=== PATIENT | female | born 1970 | race Two or more races ===

== ENCOUNTER 2017-08-14 11:09 | Inpatient (IN) | payer OTHER ==
[2017-08-14 11:24] VITALS: BMI 30.3
--- NOTE | 2017-08-14 13:10 | HP ---
COWS - Scale Resting Pulse: 1= [place] 81-100 Sweatin= Chills/Flushing Restless Observation: 1= Difficult to Sit Still Pupil Size: 1= Pupils >than Normal Bone or Joint Aches: 2= Severe Diffuse Aches Runny Nose/ Eye Tearin= Runny Nose/Eyes GI Upset > 30mins: 2= Nausea/Diarrhea Tremor Observation: 1= Tremor Malone, Not Seen Yawning Observation: 1= 1-2x During Session Anxiety or Irritability: 2=Irritable/Anxious Goose Flesh Skin: 0=Smooth Skin COWS Score: 14 CIWA Score - CIWA Score Nausea/Vomitin Muscle Tremors: 1-None Visible, but Malone Anxiety: 3 Agitation: 3 Paroxysmal Sweats: 1-Minimal Palms Moist Orientation: 0-Oriented Tacttile Disturbances: 0-None Auditory Disturbances: 0-None Visual Disturbances: 0-None Headache: 2-Mild CIWA-Ar Total Score: 12 Admission [facility] Chief Complaint: ETOH withdrawal symptoms. Allergies/Adverse Reactions: Allergies Allergy/AdvReac Type Severity Reaction Status Date / Time amoxicillin trihydrate Allergy Severe Hives Verified 09/08/12 06:50 [From Augmentin] ciprofloxacin [From Cipro] Allergy Severe Hives Verified 09/08/12 06:50 ciprofloxacin HCl Allergy Severe Hives Verified 09/08/12 06:50 [From Cipro] levofloxacin [From Levaquin] Allergy Severe Hives Verified 09/08/12 06:50 metronidazole [From Flagyl] Allergy Severe Hives Verified 09/08/12 06:50 Metronidazole HCl Allergy Severe Hives Verified 09/08/12 06:50 [From Flagyl] potassium clavulanate Allergy Severe Hives Verified 09/08/12 06:50 [From Augmentin] sulfamethoxazole Allergy Severe Hives Verified 09/08/12 06:50 [From Bactrim] trimethoprim [From Bactrim] Allergy Severe Hives Verified 09/08/12 06:50 vancomycin Allergy Severe Hives Verified 09/08/12 06:50 History of Present Illness: Patient presents for ETOH and heroin withdrawal. Drinks 7-8 beers and 1/2 pint of vodka daily. Snorts heroin and cocaine 2-3 bags a day. Uses marajuana 2-3 blunts daily. Last drink this morning. Herion use was 2 days ago, last use of cocaine and marajuana this morning. States she uses non prescription methadone, last dose 2 weeks ago. No reported seizures due to withdrawal. Denies suicidal ideation junior barnes. Has history of HIV, Bipolar disorder, Hep C ( was treated 2016), HTN and asthma. Noncompliant x 4 months with HIV medication. Exam Limitations: No Limitations - Ebola screening Have you traveled outside of the country in the last 21 days: No Have you had contact with anyone from an Ebola affected area: No Have you been sick,other than usual withdrawal symptoms: No Do you have a fever: No - Review of Systems Constitutional: Night Sweats, Changes in sleep, Unintentional Wgt. Loss EENT: reports: Tearing, Nose Congestion Respiratory: reports: Cough Cardiac: reports: No Symptoms Reported GI: reports: Diarrhea, Nausea, Poor Fluid Intake : reports: No Symptoms Reported Musculoskeletal: reports: Back Pain, Joint Pain, Muscle Pain Integumentary: reports: Flushing Neuro: reports: Headache, Tremors Endocrine: reports: Flushing, Unexplained Weight Loss Hematology: reports: No Symptoms Reported Psychiatric: reports: Anxious, Depressed Patient History - Patient Medical History Hx Anemia: No Hx Asthma: Yes Hx Chronic Obstructive Pulmonary Disease (COPD): No Hx Cancer: No Hx Cardiac Disorders: No Hx Congestive Heart Failure: No Hx Hypertension: Yes Hx Hypercholesterolemia: No Hx Pacemaker: No HX Cerebrovascular Accident: No Hx Seizures: No Hx Dementia: No Hx Diabetes: No Hx Gastrointestinal Disorders: Yes (GERD) Hx Liver Disease: No Hx Genitourinary Disorders: No Hx Sexually Transmitted Disorders: No Hx Renal Disease (ESRD): No Hx Thyroid Disease: No Hx Human Immunodeficiency Virus (HIV): Yes Hx Hepatitis C: Yes (Treated with Homar 2016) Hx Depression: Yes Hx Suicide Attempt: No (Denies suicidal ideation) Hx Bipolar Disorder: Yes Hx Schizophrenia: No - Patient Surgical History Past Surgical History: Yes Hx Neurologic Surgery: No Hx Cataract Extraction: No Hx Cardiac Surgery: No Hx Lung Surgery: No Hx Breast Surgery: No Hx Breast Biopsy: No Hx Abdominal Surgery: Yes (1995- gallbladder) Hx Appendectomy: No Hx Cholecystectomy: Yes (1996) Hx Genitourinary Surgery: No Hx Section: No Hx Orthopedic Surgery: No Hx Hysterectomy: No Other Surgical History: 2000- left axillary abscess, left pinky surgery Anesthesia Reaction: No - PPD History Previous Implant?: Yes (positive result, needs CXR) Implanted On Prior [facility] Admission?: Yes - Reproductive History Last Menstrual Period: 08/11/13 Patient : No - Smoking Cessation Smoking history: Current every day smoker Have you smoked in the past 12 months: Yes Aproximately how many cigarettes per day: 20 Cigars Per Day: 0 Hx Chewing Tobacco Use: No Initiated information on smoking cessation: Yes 'Breaking Loose' booklet given: 08/14/17 - Substances Abused Heroin Route: Inhalation Frequency: 3-6 times per week Amount used: 2 bags Age of first use: 18 Date of Last Use: 08/11/17 Alcohol Route: Oral Frequency: Daily Amount used: 6-7 beers and 1/2 pint voldka Age of first use: 9 Date of Last Use: 08/13/17 Cocaine Route: Smoking Frequency: Daily Amount used: 4 grams Age of first use: 10 Date of Last Use: 08/14/17 Marijuana/Hashish Route: Inhalation Frequency: Daily Amount used: 2-3 bags Age of first use: 9 Date of Last Use: 08/14/17 Family Disease History - Family Disease History Family Disease History: Diabetes: Brother (sleep apnea), Respiratory: Brother, Other: Father ( throat cancer) Admission Physical Exam S - Vital Signs Vital Signs: Vital Signs - 24 hr 08/14/17 08/14/17 11:23 11:42 Temperature 96.8 F L 96.6 F L Pulse Rate 91 H 91 H Respiratory 18 18 Rate Blood Pressure 161/99 161/99 - Physical General Appearance: Yes: No Apparent Distress, Tremorous, Irritable, Sweating, Anxious HEENTM: Yes: Hearing grossly Normal, Normocephalic, Normal Voice, VIDAL, Pharynx Normal Respiratory: Yes: Within Normal Limits, Chest Non-Tender, Lungs Clear, Normal Breath Sounds Neck: Yes: Within Normal Limits, No masses,lesions,Nodules, Supple Breast: Yes: Breast Exam Deferred Cardiology: Yes: Within Normal Limits, Regular Rhythm, Regular Rate, S1, S2 Abdominal: Yes: Within Normal Limits, Normal Bowel Sounds, Non Tender, Soft Genitourinary: Yes: Within Normal Limits Back: Yes: Muscle Spasm Musculoskeletal: Yes: Back pain, Joint Stiffness, Muscle Pain Extremities: Yes: Tremors Neurological: Yes: Within Normal Limits, Fully Oriented, Alert, Depressed Affect Integumentary: Yes: Warm, Moist Lymphatic: Yes: Within Normal Limits - Diagnostic (1) Alcohol dependence with uncomplicated withdrawal Current Visit: Yes Status: Acute (2) HTN (hypertension) Current Visit: Yes Status: Chronic Qualifiers: Hypertension type: unspecified Qualified Code(s): I10 - Essential (primary ) hypertension (3) HIV (human immunodeficiency virus infection) Current Visit: Yes Status: Chronic (4) GERD (gastroesophageal reflux disease) Current Visit: Yes Status: Chronic Qualifiers: Esophagitis presence: esophagitis presence not specified Qualified Code(s) : K21.9 - Gastro-esophageal reflux disease without esophagitis (5) Asthma Current Visit: Yes Status: Chronic (6) Cannabis dependence Current Visit: Yes Status: Active (7) Cocaine dependence Current Visit: Yes Status: Active (8) Opioid dependence Current Visit: Yes Status: Active Cleared for Admission [facility] - Detox or Rehab S Level of Care: Medically Managed Detox Regimen/Protocol: Methadone/Librium S Breath Alcohol Content Breath Alcohol Content: 0 Urine Pregancy Test - Result Urine Test Results: Negative- NO Line Present Urine Drug Screen - Results Drug Screen Negative: No Urine Drug Screen Results: THC-Marijuana, SILVANA-Cocaine, MTD-Methadone Inpatient Rehab Admission - Initial Determination Are CD services needed?: Yes Free of communicable disease: Yes Not in need of hospitalization: Yes - Rehab Admission Criteria Previous failed treatment: Yes Poor recovery environment: Yes Comorbidities: Yes Lacks judgement: Yes
[2017-08-14] MEDS ORDERED: MENTHOL/PHENOL 1 EACH UD MM PRN (13:30)
[2017-08-14] MEDS ORDERED: MAG HYDROX/AL HYDROX/SIMETH 30 ML UNIT-DOSE CUP PO PRN (13:30)
[2017-08-14] MEDS ORDERED: MAGNESIUM CITRATE 300 ML BOTTLE PO PRN (13:30)
[2017-08-14] MEDS ORDERED: NICOTINE POLACRILEX 2 MG GUM BC PRN (13:30)
[2017-08-14] MEDS ORDERED: guaiFENesin/D-METHORPHAN HB 10 ML UNIT-DOSE CUPS PO PRN (13:30)
[2017-08-14] MEDS ORDERED: IBUPROFEN 400 MG TABLET (FP) PO PRN (13:30)
[2017-08-14] MEDS ORDERED: ACETAMINOPHEN 325 MG TABLET (FP) PO PRN (13:30)
[2017-08-14] MEDS ORDERED: chlordiazePOXIDE HCL 25 MG CAPSULE PO PRN (13:34)
[2017-08-14] MEDS ORDERED: METHADONE HCL 10 MG TABLET (FOR DETOX USE ONLY) PO ONE ×2 (14:30→23:00)
[2017-08-14] MEDS ORDERED: chlordiazePOXIDE HCL 25 MG CAPSULE PO ONE (14:30)
[2017-08-14] MEDS: chlordiazePOXIDE HCL 25 MG CAPSULE PO SCH ×2 (16:48→22:12)
[2017-08-14] MEDS: HYDROCHLOROTHIAZIDE 25 MG TABLET (FP) PO SCH (16:48)
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
[2017-08-14 17:47] LABS: URINE APPEARANCE CLOUDY; URINE BILIRUBIN NEGATIVE (<2.0 mg/dL); URINE BLOOD NEGATIVE (NEGATIVE); URINE COLOR AMBER; URINE GLUCOSE (UA) NEGATIVE (NEGATIVE); URINE KETONE NEGATIVE (NEGATIVE); URINE NITRITE NEGATIVE (NEGATIVE)
[2017-08-14 17:53] LABS: URINE LEUK ESTERASE 1+ (NEGATIVE); URINE PROTEIN 1+ (NEGATIVE)
[2017-08-14 18:03] LABS: EPI CELLS MODERATE /HPF (FEW); URINE BACTERIA RARE /hpf (NONE SEEN); URINE MUCUS FEW
[2017-08-14] MEDS ORDERED: MELATONIN 5 MG TABLETS PO PRN (22:00)
[2017-08-14] MEDS: LURASIDONE HCL 20 MG TABLET PO SCH (22:12)
[2017-08-14] MEDS: THIAMINE HCL 100 MG TABLET (FP) PO SCH (22:12)
[2017-08-14] MEDS: ZOLPIDEM TARTRATE 5 MG TABLET PO PRN (22:13)
[2017-08-15] MEDS: chlordiazePOXIDE HCL 25 MG CAPSULE PO SCH ×4 (05:06→22:12)
--- NOTE | 2017-08-15 09:26 | PN ---
[facility] CIWA - CIWA Score Nausea/Vomitin Muscle Tremors: 3 Anxiety: 3 Agitation: 3 Paroxysmal Sweats: 1-Minimal Palms Moist Orientation: 0-Oriented Tacttile Disturbances: 1-Very Mild Itch/Numbness Auditory Disturbances: 1-Very Mild Visual Disturbances: 0-None Headache: 2-Mild CIWA-Ar Total Score: 17 [facility] COWS - Scale Resting Pulse: 1= [place] 81-100 Sweatin= Chills/Flushing Restless Observation: 3= Extraneous Movement Pupil Size: 1= Pupils >than Normal Bone or Joint Aches: 2= Severe Diffuse Aches Runny Nose/ Eye Tearin= Runny Nose/Eyes GI Upset > 30mins: 3= Vomiting/Diarrhea Tremor Observation of Outstretched Hands: 2= Slight Tremor Visible Yawning Observation: 1= 1-2x During Session Anxiety or Irritability: 2=Irritable/Anxious Goose Flesh Skin: 0=Smooth Skin COWS Score: 18 [facility] Progress Note (SOAP) Subjective: ALERT,IRRITABLE,ANXIOUS,INTERRUPTED SLEEP,TREMOR,PAIN IN THE BODY AND BACK Objective: 08/15/17 09:24 Vital Signs Temperature 98 F 08/15/17 06:10 Pulse Rate 83 08/15/17 06:10 Respiratory Rate 18 08/15/17 06:10 Blood Pressure 134/82 08/15/17 06:10 O2 Sat by Pulse Oximetry (%) EKG NSR 75/MIN PROLONG QT 450/502 NO CHEST PAIN,NO SOB,NO DIZZINESS Laboratory Last Values Urine Color Vanesa 08/14/17 17:00 Urine Appearance Cloudy 08/14/17 17:00 Urine pH 6.0 (5.0-8.0) 08/14/17 17:00 Ur Specific [place] 1.023 (1.001-1.035) 08/14/17 17:00 Urine Protein 1+ (NEGATIVE) H 08/14/17 17:00 Urine Glucose (UA) Negative (NEGATIVE) 08/14/17 17:00 Urine Ketones Negative (NEGATIVE) 08/14/17 17:00 Urine Blood Negative (NEGATIVE) 08/14/17 17:00 Urine Nitrite Negative (NEGATIVE) 08/14/17 17:00 Urine Bilirubin Negative (<2.0 mg/dL) 08/14/17 17:00 Urine Urobilinogen 2.0 mg/dL (0.2-1.0) H 08/14/17 17:00 Ur Leukocyte Esterase 1+ (NEGATIVE) H 08/14/17 17:00 Urine WBC (Auto) 20 /hpf (3-5) 08/14/17 17:00 Urine RBC (Auto) 5 /hpf (0-3) 08/14/17 17:00 Ur Epithelial Cells Moderate /HPF (FEW) 08/14/17 17:00 Urine Bacteria Rare /hpf (NONE SEEN) 08/14/17 17:00 Urine Mucus Few 08/14/17 17:00 LABS PENDING Assessment: 08/15/17 09:26 WITHDRAWAL SYMPTOM Plan: CONTINUE DETOX,REPEAT UA,ENCOURAGE FLUID
[2017-08-15] MEDS ORDERED: METHADONE HCL 10 MG TABLET (FOR DETOX USE ONLY) PO SCH (10:00)
[2017-08-15] MEDS ORDERED: HYDROCHLOROTHIAZIDE 25 MG TABLET (FP) PO SCH (10:00)
[2017-08-15 10:19] LABS: HEMATOCRIT 36.8 % (32.4-45.2); HEMOGLOBIN 11.8 GM/dL (10.7-15.3); MCH 30.3 pg (25.7-33.7); MCHC 32.1 g/dl (32.0-36.0); MEAN CELL VOLUME 94.3 fl (80-96); MEAN PLT VOLUME 10.7 fl (7.5-11.1); PLATELET COUNT 254 K/MM3 (134-434); RDW 16.3 % (11.6-15.6); WHITE BLOOD COUNT 7.9 K/mm3 (4.0-10.0)
[2017-08-15] MEDS: PRENATAL VITAMINS W/ FOLIC ACID TABLET (FP) PO SCH (10:45)
[2017-08-15] MEDS: NICOTINE 21 MG/24 HOURS TOPICAL PATCH TD SCH (10:46)
[2017-08-15] MEDS: HYDROCHLOROTHIAZIDE 25 MG TABLET (FP) PO SCH (10:46)
[2017-08-15] MEDS: P-EPHED 60MG/TRIPROLIDI 2.5MG TABLET PO PRN (10:46)
[2017-08-15 10:57] LABS: CHLORIDE 107 mmol/L (98-107); POTASSIUM 3.8 mmol/L (3.5-5.1); SODIUM 141 mmol/L (136-145)
[2017-08-15 11:02] LABS: ALBUMIN 3.2 g/dl (3.4-5.0); ALK PHOS 109 U/L (45-117); ANION GAP 8 (8-16); BILIRUBIN,TOTAL 0.3 mg/dL (0.2-1.0); BLOOD UREA NITROGEN 10 mg/dL (7-18); CALCIUM 8.6 mg/dL (8.5-10.1); CO2 26 mmol/L (21-32); CREATININE 0.7 mg/dL (0.55-1.02); GLUCOSE,RANDOM 89 mg/dL (74-106); SGOT/AST 14 U/L (15-37); SGPT/ALT 13 U/L (12-78); TOT PROT 7.8 g/dl (6.4-8.2)
--- NOTE | 2017-08-15 11:09 | EKG ---
Test Reason : Blood Pressure : / mmHG Vent. Rate : 088 BPM Atrial Rate : 088 BPM P-R Int : 126 ms QRS Dur : 076 ms QT Int : 410 ms P-R-T Axes : 065 057 053 degrees QTc Int : 496 ms NORMAL SINUS RHYTHM POSSIBLE LEFT ATRIAL ENLARGEMENT LEFT VENTRICULAR HYPERTROPHY PROLONGED QT ABNORMAL ECG NO PREVIOUS ECGS AVAILABLE Confirmed by PATRICK PEARSON MD ([id number]) on 08/15/2017 11:08:53 AM Referred By: Confirmed By:PATRICK PEARSON MD
[2017-08-15 11:38] LABS: SICKLE CELL SCREEN NEGATIVE (NEGATIVE)
[2017-08-15] MEDS: DOCUSATE SODIUM 100 MG CAPSULE (FP) PO SCH ×2 (15:24→22:12)
[2017-08-15] MEDS: LURASIDONE HCL 20 MG TABLET PO SCH (22:12)
[2017-08-15] MEDS: THIAMINE HCL 100 MG TABLET (FP) PO SCH (22:12)
[2017-08-15] MEDS: ZOLPIDEM TARTRATE 5 MG TABLET PO PRN (22:15)
[2017-08-16] MEDS: chlordiazePOXIDE HCL 25 MG CAPSULE PO SCH ×2 (06:02→10:34)
[2017-08-16] MEDS: DOCUSATE SODIUM 100 MG CAPSULE (FP) PO SCH ×3 (06:03→22:16)
[2017-08-16] MEDS: P-EPHED 60MG/TRIPROLIDI 2.5MG TABLET PO PRN (06:19)
--- NOTE | 2017-08-16 10:06 | PN ---
S CIWA - CIWA Score Nausea/Vomitin Muscle Tremors: 3 Anxiety: 3 Agitation: 2 Paroxysmal Sweats: 1-Minimal Palms Moist Orientation: 0-Oriented Tacttile Disturbances: 1-Very Mild Itch/Numbness Auditory Disturbances: 1-Very Mild Visual Disturbances: 0-None Headache: 2-Mild CIWA-Ar Total Score: 16 [facility] COWS - Scale Resting Pulse: 1= [place] 81-100 Sweatin= Chills/Flushing Restless Observation: 3= Extraneous Movement Pupil Size: 1= Pupils >than Normal Bone or Joint Aches: 2= Severe Diffuse Aches Runny Nose/ Eye Tearin= Runny Nose/Eyes GI Upset > 30mins: 2= Nausea/Diarrhea Tremor Observation of Outstretched Hands: 2= Slight Tremor Visible Yawning Observation: 1= 1-2x During Session Anxiety or Irritability: 2=Irritable/Anxious Goose Flesh Skin: 0=Smooth Skin COWS Score: 17 S Progress Note (SOAP) Subjective: ALERT,IRRITABLE,ANXIOUS,INTERRUPTED SLEEP,TREMOR,PAIN IN THE BODY AND BACK Objective: 08/16/17 10:04 Vital Signs Temperature 97.9 F 08/16/17 06:30 Pulse Rate 82 08/16/17 06:30 Respiratory Rate 18 08/16/17 06:30 Blood Pressure 102/50 08/16/17 06:30 O2 Sat by Pulse Oximetry (%) 08/16/17 10:05 Laboratory Last Values WBC 7.9 K/mm3 (4.0-10.0) 08/15/17 06:00 RBC 3.90 M/mm3 (3.60-5.2) 08/15/17 06:00 Hgb 11.8 GM/dL (10.7-15.3) 08/15/17 06:00 Hct 36.8 % (32.4-45.2) 08/15/17 06:00 MCV 94.3 fl (80-96) 08/15/17 06:00 MCH 30.3 pg (25.7-33.7) 08/15/17 06:00 MCHC 32.1 g/dl (32.0-36.0) 08/15/17 06:00 RDW 16.3 % (11.6-15.6) H D 08/15/17 06:00 Plt Count 254 K/MM3 (134-434) 08/15/17 06:00 MPV 10.7 fl (7.5-11.1) D 08/15/17 06:00 Sickle Cell Screen Negative (NEGATIVE) 08/15/17 06:00 Sodium 141 mmol/L (136-145) 08/15/17 06:00 Potassium 3.8 mmol/L (3.5-5.1) 08/15/17 06:00 Chloride 107 mmol/L (98-107) 08/15/17 06:00 Carbon Dioxide 26 mmol/L (21-32) 08/15/17 06:00 Anion Gap 8 (8-16) 08/15/17 06:00 BUN 10 mg/dL (7-18) 08/15/17 06:00 Creatinine 0.7 mg/dL (0.55-1.02) 08/15/17 06:00 Creat Clearance w eGFR > 60 (>60) 08/15/17 06:00 Random Glucose 89 mg/dL (74-106) 08/15/17 06:00 Calcium 8.6 mg/dL (8.5-10.1) 08/15/17 06:00 Total Bilirubin 0.3 mg/dL (0.2-1.0) 08/15/17 06:00 AST 14 U/L (15-37) L 08/15/17 06:00 ALT 13 U/L (12-78) 08/15/17 06:00 Alkaline Phosphatase 109 U/L (45-117) 08/15/17 06:00 Total Protein 7.8 g/dl (6.4-8.2) 08/15/17 06:00 Albumin 3.2 g/dl (3.4-5.0) L 08/15/17 06:00 Urine Color Vanesa 08/14/17 17:00 Urine Appearance Cloudy 08/14/17 17:00 Urine pH 6.0 (5.0-8.0) 08/14/17 17:00 Ur Specific [place] 1.023 (1.001-1.035) 08/14/17 17:00 Urine Protein 1+ (NEGATIVE) H 08/14/17 17:00 Urine Glucose (UA) Negative (NEGATIVE) 08/14/17 17:00 Urine Ketones Negative (NEGATIVE) 08/14/17 17:00 Urine Blood Negative (NEGATIVE) 08/14/17 17:00 Urine Nitrite Negative (NEGATIVE) 08/14/17 17:00 Urine Bilirubin Negative (<2.0 mg/dL) 08/14/17 17:00 Urine Urobilinogen 2.0 mg/dL (0.2-1.0) H 08/14/17 17:00 Ur Leukocyte Esterase 1+ (NEGATIVE) H 08/14/17 17:00 Urine WBC (Auto) 20 /hpf (3-5) 08/14/17 17:00 Urine RBC (Auto) 5 /hpf (0-3) 08/14/17 17:00 Ur Epithelial Cells Moderate /HPF (FEW) 08/14/17 17:00 Urine Bacteria Rare /hpf (NONE SEEN) 08/14/17 17:00 Urine Mucus Few 08/14/17 17:00 RPR Titer Nonreactive (NONREACTIVE) 08/15/17 06:00 Assessment: 08/16/17 10:05 WITHDRAWAL SYMPTOM Plan: CONTINUE DETOX,REPEAT UA
[2017-08-16] MEDS: PRENATAL VITAMINS W/ FOLIC ACID TABLET (FP) PO SCH (10:33)
[2017-08-16] MEDS: HYDROCHLOROTHIAZIDE 25 MG TABLET (FP) PO SCH (10:33)
[2017-08-16] MEDS: METHADONE HCL 5 MG TABLET (FOR DETOX USE ONLY) PO SCH (10:34)
[2017-08-16] MEDS: NICOTINE 21 MG/24 HOURS TOPICAL PATCH TD SCH (10:34)
[2017-08-16 14:13] LABS: URINE APPEARANCE SLCLOUDY; URINE BILIRUBIN NEGATIVE (<2.0 mg/dL); URINE BLOOD NEGATIVE (NEGATIVE); URINE COLOR LTYELLOW; URINE GLUCOSE (UA) NEGATIVE (NEGATIVE); URINE KETONE NEGATIVE (NEGATIVE); URINE LEUK ESTERASE TRACE (NEGATIVE); URINE NITRITE NEGATIVE (NEGATIVE); URINE PROTEIN NEGATIVE (NEGATIVE); URINE UROBILINOGEN NEGATIVE mg/dL (0.2-1.0)
[2017-08-16 14:30] LABS: CALCIUM OXALATE CRYSTALS RARE /hpf (NONE SEEN); EPI CELLS RARE /HPF (FEW)
[2017-08-16] MEDS: MAGNESIUM HYDROX 2400MG/30ML ORAL SUSPENSION 30 ML CUP PO PRN (17:19)
[2017-08-16] MEDS: chlordiazePOXIDE 5 MG CAPSULE PO SCH ×2 (17:49→22:16)
[2017-08-16] MEDS: THIAMINE HCL 100 MG TABLET (FP) PO SCH (22:16)
[2017-08-16] MEDS: LURASIDONE HCL 20 MG TABLET PO SCH (22:16)
[2017-08-16] MEDS: ZOLPIDEM TARTRATE 5 MG TABLET PO PRN (22:21)
[2017-08-17] MEDS: DOCUSATE SODIUM 100 MG CAPSULE (FP) PO SCH ×3 (05:16→22:16)
[2017-08-17] MEDS: chlordiazePOXIDE 5 MG CAPSULE PO SCH ×2 (05:16→10:10)
[2017-08-17] MEDS: MAGNESIUM HYDROX 2400MG/30ML ORAL SUSPENSION 30 ML CUP PO PRN (05:18)
[2017-08-17] MEDS: NICOTINE 21 MG/24 HOURS TOPICAL PATCH TD SCH (10:10)
[2017-08-17] MEDS: HYDROCHLOROTHIAZIDE 25 MG TABLET (FP) PO SCH (10:10)
[2017-08-17] MEDS: PRENATAL VITAMINS W/ FOLIC ACID TABLET (FP) PO SCH (10:10)
[2017-08-17] MEDS: METHADONE HCL 5 MG TABLET (FOR DETOX USE ONLY) PO SCH (10:11)
--- NOTE | 2017-08-17 10:39 | PN ---
S Progress Note (SOAP) Subjective: Occasional nausea without vomiting, one episode of diarrhea last night Objective: 08/17/17 10:37 Vital Signs 08/17/17 08/17/17 03:30 06:00 Temperature 96.3 F L Pulse Rate 84 Respiratory 18 18 Rate Blood Pressure 117/77 Laboratory Last Values WBC 7.9 K/mm3 (4.0-10.0) 08/15/17 06:00 RBC 3.90 M/mm3 (3.60-5.2) 08/15/17 06:00 Hgb 11.8 GM/dL (10.7-15.3) 08/15/17 06:00 Hct 36.8 % (32.4-45.2) 08/15/17 06:00 MCV 94.3 fl (80-96) 08/15/17 06:00 MCH 30.3 pg (25.7-33.7) 08/15/17 06:00 MCHC 32.1 g/dl (32.0-36.0) 08/15/17 06:00 RDW 16.3 % (11.6-15.6) H D 08/15/17 06:00 Plt Count 254 K/MM3 (134-434) 08/15/17 06:00 MPV 10.7 fl (7.5-11.1) D 08/15/17 06:00 Sickle Cell Screen Negative (NEGATIVE) 08/15/17 06:00 Sodium 141 mmol/L (136-145) 08/15/17 06:00 Potassium 3.8 mmol/L (3.5-5.1) 08/15/17 06:00 Chloride 107 mmol/L (98-107) 08/15/17 06:00 Carbon Dioxide 26 mmol/L (21-32) 08/15/17 06:00 Anion Gap 8 (8-16) 08/15/17 06:00 BUN 10 mg/dL (7-18) 08/15/17 06:00 Creatinine 0.7 mg/dL (0.55-1.02) 08/15/17 06:00 Creat Clearance w eGFR > 60 (>60) 08/15/17 06:00 Random Glucose 89 mg/dL (74-106) 08/15/17 06:00 Calcium 8.6 mg/dL (8.5-10.1) 04/05/18 06:00 Total Bilirubin 0.3 mg/dL (0.2-1.0) 08/15/17 06:00 AST 14 U/L (15-37) L 08/15/17 06:00 ALT 13 U/L (12-78) 08/15/17 06:00 Alkaline Phosphatase 109 U/L (45-117) 08/15/17 06:00 Total Protein 7.8 g/dl (6.4-8.2) 08/15/17 06:00 Albumin 3.2 g/dl (3.4-5.0) L 08/15/17 06:00 Urine Color Ltyellow 08/16/17 10:00 Urine Appearance Slcloudy 08/16/17 10:00 Urine pH 7.0 (5.0-8.0) 08/16/17 10:00 Ur Specific [place] 1.011 (1.001-1.035) 08/16/17 10:00 Urine Protein Negative (NEGATIVE) 08/16/17 10:00 Urine Glucose (UA) Negative (NEGATIVE) 08/16/17 10:00 Urine Ketones Negative (NEGATIVE) 08/16/17 10:00 Urine Blood Negative (NEGATIVE) 08/16/17 10:00 Urine Nitrite Negative (NEGATIVE) 08/16/17 10:00 Urine Bilirubin Negative (<2.0 mg/dL) 08/16/17 10:00 Urine Urobilinogen Negative mg/dL (0.2-1.0) 08/16/17 10:00 Ur Leukocyte Esterase Trace (NEGATIVE) 08/16/17 10:00 Urine WBC (Auto) 4 /hpf (3-5) 08/16/17 10:00 Urine RBC (Auto) <1 /hpf (0-3) 08/16/17 10:00 Ur Epithelial Cells Rare /HPF (FEW) 08/16/17 10:00 Calcium Oxalate Crystal Rare /hpf (NONE SEEN) 08/16/17 10:00 Urine Bacteria Rare /hpf (NONE SEEN) 08/14/17 17:00 Urine Mucus Few 08/14/17 17:00 RPR Titer Nonreactive (NONREACTIVE) 08/15/17 06:00 Labs noted Assessment: 08/17/17 10:38 Withdrawal symptoms Plan: Continue detox
--- NOTE | 2017-08-17 11:38 | EKG ---
Test Reason : Blood Pressure : / mmHG Vent. Rate : 076 BPM Atrial Rate : 076 BPM P-R Int : 128 ms QRS Dur : 080 ms QT Int : 458 ms P-R-T Axes : 062 053 070 degrees QTc Int : 515 ms NORMAL SINUS RHYTHM POSSIBLE LEFT ATRIAL ENLARGEMENT LEFT VENTRICULAR HYPERTROPHY NONSPECIFIC T WAVE ABNORMALITY PROLONGED QT ABNORMAL ECG WHEN COMPARED WITH ECG OF 14-AUG-2017 14:53, NONSPECIFIC T WAVE ABNORMALITY NOW EVIDENT IN ANTEROLATERAL LEADS Confirmed by GEOFFREY REVELES MD ([id number]) on 08/17/2017 11:38:19 AM Referred By: Confirmed By:GEOFFREY REVELES MD
[2017-08-17] MEDS: hydrOXYzine PAMOATE 50 MG CAPSULE (FP) PO PRN (14:35)
[2017-08-17] MEDS: chlordiazePOXIDE HCL 10 MG CAPSULE PO SCH ×2 (17:49→22:17)
[2017-08-17] MEDS: THIAMINE HCL 100 MG TABLET (FP) PO SCH (22:16)
[2017-08-17] MEDS: LURASIDONE HCL 20 MG TABLET PO SCH (22:16)
[2017-08-17] MEDS: ZOLPIDEM TARTRATE 5 MG TABLET PO PRN (22:18)
[2017-08-17] MEDS: P-EPHED 60MG/TRIPROLIDI 2.5MG TABLET PO PRN (23:11)
[2017-08-18] MEDS: chlordiazePOXIDE HCL 10 MG CAPSULE PO SCH ×2 (05:49→10:19)
[2017-08-18] MEDS: DOCUSATE SODIUM 100 MG CAPSULE (FP) PO SCH ×4 (05:49→22:13)
[2017-08-18] MEDS ORDERED: METHADONE HCL 10 MG TABLET (FOR DETOX USE ONLY) PO SCH (10:00)
[2017-08-18] MEDS: HYDROCHLOROTHIAZIDE 25 MG TABLET (FP) PO SCH (10:18)
[2017-08-18] MEDS: PRENATAL VITAMINS W/ FOLIC ACID TABLET (FP) PO SCH (10:18)
[2017-08-18] MEDS: NICOTINE 21 MG/24 HOURS TOPICAL PATCH TD SCH (10:19)
--- NOTE | 2017-08-18 13:55 | PN ---
[facility] Progress Note (SOAP) Subjective: feeling better no tremor no joint aches less sweat alert oriented x 3 Objective: 08/18/17 13:54 Vital Signs Temperature 98.1 F 08/18/17 09:54 Pulse Rate 88 08/18/17 09:54 Respiratory Rate 18 04 09:54 Blood Pressure 106/75 08/18/17 09:54 O2 Sat by Pulse Oximetry (%) Laboratory Last Values WBC 7.9 K/mm3 (4.0-10.0) 08/15/17 06:00 RBC 3.90 M/mm3 (3.60-5.2) 08/15/17 06:00 Hgb 11.8 GM/dL (10.7-15.3) 08/15/17 06:00 Hct 36.8 % (32.4-45.2) 08/15/17 06:00 MCV 94.3 fl (80-96) 08/15/17 06:00 MCH 30.3 pg (25.7-33.7) 08/15/17 06:00 MCHC 32.1 g/dl (32.0-36.0) 08/15/17 06:00 RDW 16.3 % (11.6-15.6) H D 08/15/17 06:00 Plt Count 254 K/MM3 (134-434) 08/15/17 06:00 MPV 10.7 fl (7.5-11.1) D 08/15/17 06:00 Sickle Cell Screen Negative (NEGATIVE) 08/15/17 06:00 Sodium 141 mmol/L (136-145) 08/15/17 06:00 Potassium 3.8 mmol/L (3.5-5.1) 08/15/17 06:00 Chloride 107 mmol/L (98-107) 08/15/17 06:00 Carbon Dioxide 26 mmol/L (21-32) 08/15/17 06:00 Anion Gap 8 (8-16) 08/15/17 06:00 BUN 10 mg/dL (7-18) 08/15/17 06:00 Creatinine 0.7 mg/dL (0.55-1.02) 08/15/17 06:00 Creat Clearance w eGFR > 60 (>60) 08/15/17 06:00 Random Glucose 89 mg/dL (74-106) 08/15/17 06:00 Calcium 8.6 mg/dL (8.5-10.1) 08/15/17 06:00 Total Bilirubin 0.3 mg/dL (0.2-1.0) 08/15/17 06:00 AST 14 U/L (15-37) L 08/15/17 06:00 ALT 13 U/L (12-78) 08/15/17 06:00 Alkaline Phosphatase 109 U/L (45-117) 08/15/17 06:00 Total Protein 7.8 g/dl (6.4-8.2) 08/15/17 06:00 Albumin 3.2 g/dl (3.4-5.0) L 08/15/17 06:00 Urine Color Ltyellow 08/16/17 10:00 Urine Appearance Slcloudy 08/16/17 10:00 Urine pH 7.0 (5.0-8.0) 08/16/17 10:00 Ur Specific [place] 1.011 (1.001-1.035) 08/16/17 10:00 Urine Protein Negative (NEGATIVE) 08/16/17 10:00 Urine Glucose (UA) Negative (NEGATIVE) 08/16/17 10:00 Urine Ketones Negative (NEGATIVE) 08/16/17 10:00 Urine Blood Negative (NEGATIVE) 08/16/17 10:00 Urine Nitrite Negative (NEGATIVE) 08/16/17 10:00 Urine Bilirubin Negative (<2.0 mg/dL) 08/16/17 10:00 Urine Urobilinogen Negative mg/dL (0.2-1.0) 08/16/17 10:00 Ur Leukocyte Esterase Trace (NEGATIVE) 08/16/17 10:00 Urine WBC (Auto) 4 /hpf (3-5) 08/16/17 10:00 Urine RBC (Auto) <1 /hpf (0-3) 08/16/17 10:00 Ur Epithelial Cells Rare /HPF (FEW) 08/16/17 10:00 Calcium Oxalate Crystal Rare /hpf (NONE SEEN) 08/16/17 10:00 Urine Bacteria Rare /hpf (NONE SEEN) 08/14/17 17:00 Urine Mucus Few 08/14/17 17:00 RPR Titer Nonreactive (NONREACTIVE) 08/15/17 06:00 lab noted Assessment: 08/18/17 13:54 mild withdrawal sx Plan: medically supervised detox
[2017-08-18 15:09] LABS: URINE APPEARANCE CLOUDY; URINE BILIRUBIN NEGATIVE (<2.0 mg/dL); URINE BLOOD NEGATIVE (NEGATIVE); URINE COLOR YELLOW; URINE GLUCOSE (UA) NEGATIVE (NEGATIVE); URINE KETONE NEGATIVE (NEGATIVE); URINE NITRITE NEGATIVE (NEGATIVE); URINE PROTEIN NEGATIVE (NEGATIVE); URINE UROBILINOGEN NEGATIVE mg/dL (0.2-1.0)
[2017-08-18 15:12] LABS: URINE LEUK ESTERASE 2+ (NEGATIVE)
[2017-08-18 15:14] LABS: EPI CELLS MODERATE /HPF (FEW); URINE BACTERIA RARE /hpf (NONE SEEN); URINE MUCUS RARE
[2017-08-18] MEDS: hydrOXYzine PAMOATE 50 MG CAPSULE (FP) PO PRN (15:24)
[2017-08-18] MEDS: LOPERAMIDE HCL 2 MG CAPSULE PO PRN (19:19)
[2017-08-18] MEDS: ZOLPIDEM TARTRATE 5 MG TABLET PO PRN (22:11)
[2017-08-18] MEDS: LURASIDONE HCL 20 MG TABLET PO SCH (22:11)
[2017-08-18] MEDS: THIAMINE HCL 100 MG TABLET (FP) PO SCH (22:11)
[2017-08-19] MEDS: hydrOXYzine PAMOATE 50 MG CAPSULE (FP) PO PRN (02:38)
[2017-08-19] MEDS: LOPERAMIDE HCL 2 MG CAPSULE PO PRN (02:38)
[2017-08-19] MEDS ORDERED: METHADONE HCL 5 MG TABLET (FOR DETOX USE ONLY) PO SCH (06:00)
[2017-08-19] MEDS: DOCUSATE SODIUM 100 MG CAPSULE (FP) PO SCH (06:09)
--- NOTE | 2017-08-19 08:11 | PN ---
S Progress Note (SOAP) Subjective: ALERT,NO COMPLAINT Objective: 08/19/17 08:09 Vital Signs Temperature 97.3 F L 08/19/17 06:10 Pulse Rate 89 08/19/17 06:10 Respiratory Rate 18 08/19/17 06:10 Blood Pressure 128/85 08/19/17 06:10 O2 Sat by Pulse Oximetry (%) Assessment: 08/19/17 08:09 DETOX COMPLETED,NO COMPLAINT Plan: DISCHARGE TODAY,FOLLOW UP WITH REVELATION ARRANGEMENT
--- NOTE | 2017-08-19 08:14 | DS ---
[facility] Summary Admission Date: 08/14/17 Discharge Date: 08/19/17 - History Present History: Alcohol Dependence, Cannabis Dependence, Cocaine Dependence, Opioid Dependence Additional Comments: FOLLOW UP WITH REVELATION APPOINTMENT Pertinent Past History: ASTHMA HYPERTENSION GERD HIV BIPOLAR DISORDER - Physical Exam Results Vital Signs: Vital Signs Temperature 97.3 F L 08/19/17 06:10 Pulse Rate 89 08/19/17 06:10 Respiratory Rate 18 08/19/17 06:10 Blood Pressure 128/85 08/19/17 06:10 O2 Sat by Pulse Oximetry (%) Pertinent Admission Physical Exam Findings: WITHDRAWAL SIGNS AND SYMPTOM Vital Signs Temperature 97.3 F L 08/19/17 06:10 Pulse Rate 89 08/19/17 06:10 Respiratory Rate 18 08/19/17 06:10 Blood Pressure 128/85 08/19/17 06:10 O2 Sat by Pulse Oximetry (%) Laboratory Last Values WBC 7.9 K/mm3 (4.0-10.0) 08/15/17 06:00 RBC 3.90 M/mm3 (3.60-5.2) 08/15/17 06:00 Hgb 11.8 GM/dL (10.7-15.3) 08/15/17 06:00 Hct 36.8 % (32.4-45.2) 08/15/17 06:00 MCV 94.3 fl (80-96) 08/15/17 06:00 MCH 30.3 pg (25.7-33.7) 08/15/17 06:00 MCHC 32.1 g/dl (32.0-36.0) 08/15/17 06:00 RDW 16.3 % (11.6-15.6) H D 08/15/17 06:00 Plt Count 254 K/MM3 (134-434) 08/15/17 06:00 MPV 10.7 fl (7.5-11.1) D 08/15/17 06:00 Sickle Cell Screen Negative (NEGATIVE) 08/15/17 06:00 Sodium 141 mmol/L (136-145) 08/15/17 06:00 Potassium 3.8 mmol/L (3.5-5.1) 08/15/17 06:00 Chloride 107 mmol/L (98-107) 08/15/17 06:00 Carbon Dioxide 26 mmol/L (21-32) 08/15/17 06:00 Anion Gap 8 (8-16) 08/15/17 06:00 BUN 10 mg/dL (7-18) 08/15/17 06:00 Creatinine 0.7 mg/dL (0.55-1.02) 08/15/17 06:00 Creat Clearance w eGFR > 60 (>60) 08/15/17 06:00 Random Glucose 89 mg/dL (74-106) 08/15/17 06:00 Calcium 8.6 mg/dL (8.5-10.1) 08/15/17 06:00 Total Bilirubin 0.3 mg/dL (0.2-1.0) 08/15/17 06:00 AST 14 U/L (15-37) L 08/15/17 06:00 ALT 13 U/L (12-78) 08/15/17 06:00 Alkaline Phosphatase 109 U/L (45-117) 08/15/17 06:00 Total Protein 7.8 g/dl (6.4-8.2) 08/15/17 06:00 Albumin 3.2 g/dl (3.4-5.0) L 08/15/17 06:00 Urine Color Yellow 08/18/17 12:51 Urine Appearance Cloudy 08/18/17 12:51 Urine pH 6.0 (5.0-8.0) 08/18/17 12:51 Ur Specific [place] 1.018 (1.001-1.035) 08/18/17 12:51 Urine Protein Negative (NEGATIVE) 08/18/17 12:51 Urine Glucose (UA) Negative (NEGATIVE) 08/18/17 12:51 Urine Ketones Negative (NEGATIVE) 08/18/17 12:51 Urine Blood Negative (NEGATIVE) 08/18/17 12:51 Urine Nitrite Negative (NEGATIVE) 08/18/17 12:51 Urine Bilirubin Negative (<2.0 mg/dL) 08/18/17 12:51 Urine Urobilinogen Negative mg/dL (0.2-1.0) 08/18/17 12:51 Ur Leukocyte Esterase 2+ (NEGATIVE) H 08/18/17 12:51 Urine WBC (Auto) 4 /hpf (3-5) 08/18/17 12:51 Urine RBC (Auto) 1 /hpf (0-3) 08/18/17 12:51 Ur Epithelial Cells Moderate /HPF (FEW) 08/18/17 12:51 Calcium Oxalate Crystal Rare /hpf (NONE SEEN) 08/16/17 10:00 Urine Bacteria Rare /hpf (NONE SEEN) 08/18/17 12:51 Urine Mucus Rare 08/18/17 12:51 RPR Titer Nonreactive (NONREACTIVE) 08/15/17 06:00 - Treatment Hospital Course: Detox Protocol Followed, Detoxed Safely, Responded well, Discharged Condition Good, Rehab Referral Accepted Patient has Accepted a Rehab Referral to: [facility] - Medication Discharge Medications: Ambulatory Orders Emtricitab/Rilpivirine/Tenofov [Complera Tablet -] 1 each PO DAILY@0800 #30 tablet 06/04/13 Lurasidone HCl [Latuda -] 40 mg PO DAILY 08/14/17 Hydrochlorothiazide [Hctz -] 25 mg PO DAILY #30 tablet 08/18/17 - Diagnosis (1) Opioid dependence with withdrawal Current Visit: Yes Status: Acute (2) Alcohol dependence with uncomplicated withdrawal Current Visit: Yes Status: Acute (3) Asthma Current Visit: Yes Status: Chronic (4) Bipolar disorder Current Visit: Yes Status: Chronic (5) GERD (gastroesophageal reflux disease) Current Visit: Yes Status: Chronic Qualifiers: Esophagitis presence: esophagitis presence not specified Qualified Code(s) : K21.9 - Gastro-esophageal reflux disease without esophagitis (6) HIV (human immunodeficiency virus infection) Current Visit: Yes Status: Chronic (7) HTN (hypertension) Current Visit: Yes Status: Chronic Qualifiers: Hypertension type: unspecified Qualified Code(s): I10 - Essential (primary ) hypertension - AMA Did Patient Leave Against Medical Advice: No
--- NOTE | 2017-08-19 09:19 | PN ---
[facility] Progress Note Note: PATIENT IS HIV POSITIVE,NON COMPLIANCE,DID NOT TAKE MEDICATION COMPLERA FOR 2 MONTHS,ADVISE TO GO TO SEE PMD FOR EVALUATION BEFORE RESUMING MEDICATION
[2017-08-19 09:55] VITALS: BP 117/71; PULSE 95; TEMP 97.5
[2017-08-19] MEDS: HYDROCHLOROTHIAZIDE 25 MG TABLET (FP) PO SCH (10:10)
[2017-08-19] MEDS: PRENATAL VITAMINS W/ FOLIC ACID TABLET (FP) PO SCH (10:10)
[2017-08-19] MEDS: NICOTINE 21 MG/24 HOURS TOPICAL PATCH TD SCH (10:10)
== END 2017-08-19 11:25 | disposition other institution (70) | DRG 773 ==
LOC: YASAS 11:09 → Y6N 14:02
PROVIDERS: ADMIT Internal Medicine; ATTEND Internal Medicine
PROC: HZ2ZZZZ Detoxification Services for Substance Abuse Treatment (ICD-10-PCS; principal; 2017-08-14)
DX: F11.23 Opioid dependence with withdrawal (principal); F10.230 Alcohol dependence with withdrawal, uncomplicated; F14.20 Cocaine dependence, uncomplicated; F12.20 Cannabis dependence, uncomplicated; F31.9 Bipolar disorder, unspecified; I10 Essential (primary) hypertension; J45.909 Unspecified asthma, uncomplicated; K21.9 Gastro-esophageal reflux disease without esophagitis; B18.2 Chronic viral hepatitis C; Z21 Asymptomatic human immunodeficiency virus [HIV] infection status
CPT/HCPCS: 36415; 71046-TC-FY; 80053; 81003; 81015; 85027; 85660; 86593; 93005; 93010

== ENCOUNTER 2017-08-19 11:11 | Inpatient (IN) | payer OTHER ==
[2017-08-19] MEDS ORDERED: ACETAMINOPHEN 325 MG TABLET (FP) PO PRN (12:52)
[2017-08-19] MEDS ORDERED: MAG HYDROX/AL HYDROX/SIMETH 30 ML UNIT-DOSE CUP PO PRN (12:52)
[2017-08-19] MEDS ORDERED: MENTHOL/PHENOL 1 EACH UD MM PRN (12:52)
[2017-08-19] MEDS ORDERED: guaiFENesin/D-METHORPHAN HB 10 ML UNIT-DOSE CUPS PO PRN (12:52)
[2017-08-19] MEDS ORDERED: IBUPROFEN 400 MG TABLET (FP) PO PRN (12:52)
[2017-08-19] MEDS ORDERED: P-EPHED 60MG/TRIPROLIDI 2.5MG TABLET PO PRN (12:52)
--- NOTE | 2017-08-19 12:58 | PN ---
[facility] Progress Note Note: Patient presents with request to d/c clonidine. Denies any medical complaints. Vital Signs Temperature 97.3 F L 08/19/17 11:40 Pulse Rate 89 08/19/17 11:40 Respiratory Rate 19 08/19/17 11:40 Blood Pressure 123/81 08/19/17 11:40 O2 Sat by Pulse Oximetry (%) Obj: General: pt is alert and oriented x 3. In NAD. Skin warm and dry. Ambulating within unit. A/P: Withdrawal symptoms resolved Clonidine d/c as pre request. Continue to monitor clincially.
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
[2017-08-19] MEDS ORDERED: NICOTINE POLACRILEX 2 MG GUM BUC PRN (16:44)
[2017-08-19] MEDS ORDERED: ALBUTEROL SO4 18 GM HFA INHALER IH PRN (16:48)
[2017-08-19] MEDS: THIAMINE HCL 100 MG TABLET (FP) PO SCH (21:29)
[2017-08-19] MEDS: hydrOXYzine PAMOATE 50 MG CAPSULE (FP) PO PRN (21:30)
[2017-08-19] MEDS: BUDESONIDE/FORMETEROL FUMARATE 160/4.5 mcg INHALER IH SCH (21:31)
[2017-08-19] MEDS ORDERED: cloNIDine HCL 0.1 MG TABLET PO ONE (23:29)
--- NOTE | 2017-08-19 23:31 | PN ---
[facility] Progress Note Note: Patient reports feeling protracted withdrawal symptoms. Reports difficulty sleeping, chills and sweats. Vital Signs Period Temp Pulse Resp BP Sys/Martinez Pulse Ox Last 24 Hr 97.3 F 89 19 123/81 Patient AOx3, anxious and diaphoretic, ambulating in the unit. Plan: Increase fluids One time order of clonide 0.1 mg Continue to monitor
[2017-08-20] MEDS: LOPERAMIDE HCL 2 MG CAPSULE PO PRN (06:49)
[2017-08-20] MEDS ORDERED: LOPERAMIDE HCL 2 MG CAPSULE PO ONE (08:51)
[2017-08-20] MEDS: EMTRICITAB/RILPIVIRINE/TENOFOV 1 EACH TABLET PO SCH (10:40)
[2017-08-20] MEDS: HYDROCHLOROTHIAZIDE 25 MG TABLET (FP) PO SCH (10:40)
[2017-08-20] MEDS: PRENATAL VITAMINS W/ FOLIC ACID TABLET (FP) PO SCH (10:40)
[2017-08-20] MEDS: NICOTINE 14 MG/24 HOURS TOPICAL PATCH TD SCH (10:41)
[2017-08-20] MEDS: BUDESONIDE/FORMETEROL FUMARATE 160/4.5 mcg INHALER IH SCH ×2 (11:03→21:50)
--- NOTE | 2017-08-20 12:29 | PN ---
[facility] Progress Note Note: Patient reports that she was in a Methadone program at [facility], on 195mg methadone dose. As per patient she detox from the Methadone 2 weeks ago, but continue to use heroin. Patient reports decrease appetite and nausea. Reports was on methadone since 2014. Patient completed detox at [facility] yesterday. Patient reports continues to experience protected withdrawals complain of chills, sweats, nausea and diarrhea and body aches. Denies chest pain, SOB, dyspnea or vertigo. Others' Prescriptions Patient Name: Elizabeth Jones Date: 1970 Address: [address] [place] [address] Sex: Female Rx Written Rx Dispensed Drug Quantity Days Supply Prescriber Name 06/17/2017 07/08/2017 alprazolam 0.5 mg tablet 2 1 Marlena Paredes ([employer]) Vital Signs Temperature 97.9 F 08/20/17 07:35 Pulse Rate 91 H 08/20/17 10:00 Respiratory Rate 18 08/20/17 07:35 Blood Pressure 94/63 08/20/17 10:00 O2 Sat by Pulse Oximetry (%) Labs pending A/P: Patient AOx3, self directing, anxious Normal Heart rate and Rhythm Lungs clear throughout, no adventitious breath sounds Bowel sounds x 4, non-tender, no organomegaly Plan: diarrhea: Lamotil one time opiod withdrawal sx: Initial dose of Suboxone 2 mg QD, patient will be monitor and evaluate for dose adjustment nausea: Zofran PRN Increase fluids Continue to monitor
[2017-08-20] MEDS ORDERED: ONDANSETRON *ODT* 4 MG TABLET SL PRN (12:34)
[2017-08-20] MEDS ORDERED: DIPHENOXYLATE 2.5/ATROPINE.025 1 COMBO TABLET PO ONE (14:20)
[2017-08-20] MEDS: BUPRENORPHINE/NALOXONE 2 MG/0.5 MG FILM PACKET SL SCH (17:32)
[2017-08-20] MEDS: THIAMINE HCL 100 MG TABLET (FP) PO SCH (21:50)
[2017-08-20] MEDS: MELATONIN 5 MG TABLETS PO PRN (21:51)
[2017-08-21] MEDS ORDERED: PT OWN MED DRAWER 7, Y5N ONE ×3 (03:18→21:45)
[2017-08-21] MEDS: EMTRICITAB/RILPIVIRINE/TENOFOV 1 EACH TABLET PO SCH (08:13)
[2017-08-21] MEDS: PRENATAL VITAMINS W/ FOLIC ACID TABLET (FP) PO SCH (10:44)
[2017-08-21] MEDS: NICOTINE 14 MG/24 HOURS TOPICAL PATCH TD SCH (10:44)
[2017-08-21] MEDS: BUDESONIDE/FORMETEROL FUMARATE 160/4.5 mcg INHALER IH SCH ×2 (10:45→22:25)
[2017-08-21] MEDS: HYDROCHLOROTHIAZIDE 25 MG TABLET (FP) PO SCH (10:45)
[2017-08-21] MEDS: BUPRENORPHINE/NALOXONE 2 MG/0.5 MG FILM PACKET SL SCH (10:45)
--- NOTE | 2017-08-21 10:54 | EKG ---
Test Reason : Blood Pressure : / mmHG Vent. Rate : 080 BPM Atrial Rate : 080 BPM P-R Int : 136 ms QRS Dur : 080 ms QT Int : 446 ms P-R-T Axes : 047 041 032 degrees QTc Int : 514 ms NORMAL SINUS RHYTHM POSSIBLE LEFT ATRIAL ENLARGEMENT LEFT VENTRICULAR HYPERTROPHY PROLONGED QT ABNORMAL ECG WHEN COMPARED WITH ECG OF 15-AUG-2017 09:17, NONSPECIFIC T WAVE ABNORMALITY NO LONGER EVIDENT IN ANTEROLATERAL LEADS Confirmed by ANUSHKA ULRICH, GEOFFREY ([id number]) on 08/21/2017 10:54:22 AM Referred By: Confirmed By:GEOFFREY REVELES MD
--- NOTE | 2017-08-21 11:57 | PN ---
[facility] Progress Note Note: Psychiatric nurse practitioner note: Pt. requesting to resume latuda 40mg while in rehab. Dr. Viveros note read and appreciated. Housekeeping Cleaner ordered latuda 40mg for patient while in detox. Will continue latuda 40mg dose. Benefits and side effects discussed. Verbal consent given. Will continue to monitor.
[2017-08-21] MEDS: THIAMINE HCL 100 MG TABLET (FP) PO SCH (21:47)
[2017-08-21] MEDS: MELATONIN 5 MG TABLETS PO PRN (21:48)
[2017-08-21] MEDS: LURASIDONE HCL 40 MG TABLET PO SCH (21:48)
[2017-08-22] MEDS: EMTRICITAB/RILPIVIRINE/TENOFOV 1 EACH TABLET PO SCH (07:20)
[2017-08-22] MEDS: PRENATAL VITAMINS W/ FOLIC ACID TABLET (FP) PO SCH (10:25)
[2017-08-22] MEDS: HYDROCHLOROTHIAZIDE 25 MG TABLET (FP) PO SCH (10:25)
[2017-08-22] MEDS: NICOTINE 14 MG/24 HOURS TOPICAL PATCH TD SCH (10:25)
[2017-08-22] MEDS: BUPRENORPHINE/NALOXONE 2 MG/0.5 MG FILM PACKET SL SCH (10:25)
[2017-08-22] MEDS: BUDESONIDE/FORMETEROL FUMARATE 160/4.5 mcg INHALER IH SCH ×2 (10:27→21:47)
[2017-08-22] MEDS ORDERED: BENZOCAINE 20 % GEL 9 GM TUBE MM PRN (12:25)
--- NOTE | 2017-08-22 12:34 | PN ---
[facility] Progress Note Note: Patient c/o of dental pain on the right lateral incisor, reports prior to admission was schedule to follow up for root canal but did not attend her appointment. Vital Signs Period Temp Pulse Resp BP Sys/Martinez Pulse Ox Last 24 Hr 97.0 F 78-88 18-18 113-118/79-80 Patient AOx3 in no distress Poor dentition with multiple caries, no sings of infection of bleeding gums Plan: Ibuprofen 600mg PRN Anbesol PRN Patient advise to follow up with her dentist upon discharge Continue to monitor
[2017-08-22] MEDS: THIAMINE HCL 100 MG TABLET (FP) PO SCH (21:47)
[2017-08-22] MEDS: MELATONIN 5 MG TABLETS PO PRN (21:47)
[2017-08-22] MEDS: LURASIDONE HCL 40 MG TABLET PO SCH (21:48)
[2017-08-23] MEDS: IBUPROFEN 600 MG TABLET (FP) PO PRN ×2 (01:30→18:26)
[2017-08-23] MEDS ORDERED: PT OWN MED DRAWER 7, Y5N ONE ×3 (01:31→20:14)
[2017-08-23] MEDS: EMTRICITAB/RILPIVIRINE/TENOFOV 1 EACH TABLET PO SCH (08:17)
[2017-08-23] MEDS: BUPRENORPHINE/NALOXONE 2 MG/0.5 MG FILM PACKET SL SCH (10:50)
[2017-08-23] MEDS: HYDROCHLOROTHIAZIDE 25 MG TABLET (FP) PO SCH (10:50)
[2017-08-23] MEDS: NICOTINE 14 MG/24 HOURS TOPICAL PATCH TD SCH (10:50)
[2017-08-23] MEDS: PRENATAL VITAMINS W/ FOLIC ACID TABLET (FP) PO SCH (10:50)
[2017-08-23] MEDS: BUDESONIDE/FORMETEROL FUMARATE 160/4.5 mcg INHALER IH SCH ×2 (10:51→21:50)
--- NOTE | 2017-08-23 12:16 | PN ---
[facility] Progress Note Note: Patient presents with complaint of constipation, back/muscle aches and anxiety. Vital Signs Temperature 97.2 F L 08/23/17 07:12 Pulse Rate 73 08/23/17 07:12 Respiratory Rate 18 08/23/17 07:12 Blood Pressure 105/73 08/23/17 07:12 O2 Sat by Pulse Oximetry (%) Subj: pt complains of constipation despite increase fluids and diet changes. Reports + muscular/back pain, level 5/10 and anxiety. Obj: Pt ambulating without assistance. Skin warm and dry. In no acute distress. + Lumbar spine tenderness. Ext without edema. Psych: Alert and oriented x 3. Anxious. A/P: Withdrawal symptoms constipation Increase oral fluids Requested Citroma as per prn order Increase suboxone to 4mg daily continue to monitor clinically
[2017-08-23] MEDS: THIAMINE HCL 100 MG TABLET (FP) PO SCH (21:48)
[2017-08-23] MEDS: MAGNESIUM CITRATE 300 ML BOTTLE PO PRN (21:50)
[2017-08-23] MEDS: LURASIDONE HCL 40 MG TABLET PO SCH (21:50)
[2017-08-23] MEDS: MELATONIN 5 MG TABLETS PO PRN (21:50)
[2017-08-24] MEDS ORDERED: PT OWN MED DRAWER 7, Y5N ONE ×2 (05:59→07:25)
[2017-08-24] MEDS: EMTRICITAB/RILPIVIRINE/TENOFOV 1 EACH TABLET PO SCH (07:24)
[2017-08-24] MEDS: PRENATAL VITAMINS W/ FOLIC ACID TABLET (FP) PO SCH (10:30)
[2017-08-24] MEDS: NICOTINE 14 MG/24 HOURS TOPICAL PATCH TD SCH (10:30)
[2017-08-24] MEDS: HYDROCHLOROTHIAZIDE 25 MG TABLET (FP) PO SCH (10:30)
[2017-08-24] MEDS: BUDESONIDE/FORMETEROL FUMARATE 160/4.5 mcg INHALER IH SCH ×2 (10:31→21:55)
[2017-08-24] MEDS: BUPRENORPHINE/NALOXONE 2 MG/0.5 MG FILM PACKET SL SCH (10:31)
[2017-08-24] MEDS: hydrOXYzine PAMOATE 50 MG CAPSULE (FP) PO PRN ×2 (16:59→21:56)
[2017-08-24] MEDS: THIAMINE HCL 100 MG TABLET (FP) PO SCH (21:54)
[2017-08-24] MEDS: LURASIDONE HCL 40 MG TABLET PO SCH (21:55)
[2017-08-24] MEDS: MELATONIN 5 MG TABLETS PO PRN (21:55)
[2017-08-25] MEDS ORDERED: PT OWN MED DRAWER 7, Y5N ONE (05:58)
[2017-08-25] MEDS: EMTRICITAB/RILPIVIRINE/TENOFOV 1 EACH TABLET PO SCH (07:15)
[2017-08-25] MEDS: hydrOXYzine PAMOATE 50 MG CAPSULE (FP) PO PRN ×2 (07:25→22:07)
[2017-08-25] MEDS: HYDROCHLOROTHIAZIDE 25 MG TABLET (FP) PO SCH (10:16)
[2017-08-25] MEDS: BUPRENORPHINE/NALOXONE 2 MG/0.5 MG FILM PACKET SL SCH (10:16)
[2017-08-25] MEDS: PRENATAL VITAMINS W/ FOLIC ACID TABLET (FP) PO SCH (10:16)
[2017-08-25] MEDS: BUDESONIDE/FORMETEROL FUMARATE 160/4.5 mcg INHALER IH SCH ×2 (10:16→22:08)
[2017-08-25] MEDS: NICOTINE 14 MG/24 HOURS TOPICAL PATCH TD SCH (10:16)
[2017-08-25] MEDS: THIAMINE HCL 100 MG TABLET (FP) PO SCH (22:06)
[2017-08-25] MEDS: LURASIDONE HCL 40 MG TABLET PO SCH (22:08)
[2017-08-25] MEDS: MELATONIN 5 MG TABLETS PO PRN (22:08)
[2017-08-26] MEDS: LOPERAMIDE HCL 2 MG CAPSULE PO PRN (05:08)
[2017-08-26] MEDS ORDERED: PT OWN MED DRAWER 7, Y5N ONE ×3 (06:03→08:57)
[2017-08-26] MEDS: EMTRICITAB/RILPIVIRINE/TENOFOV 1 EACH TABLET PO SCH (07:43)
[2017-08-26] MEDS: HYDROCHLOROTHIAZIDE 25 MG TABLET (FP) PO SCH (10:58)
[2017-08-26] MEDS: PRENATAL VITAMINS W/ FOLIC ACID TABLET (FP) PO SCH (10:58)
[2017-08-26] MEDS: BUPRENORPHINE/NALOXONE 2 MG/0.5 MG FILM PACKET SL SCH (10:58)
[2017-08-26] MEDS: BUDESONIDE/FORMETEROL FUMARATE 160/4.5 mcg INHALER IH SCH ×2 (10:59→21:36)
[2017-08-26] MEDS: NICOTINE 14 MG/24 HOURS TOPICAL PATCH TD SCH (10:59)
--- NOTE | 2017-08-26 14:40 | PN ---
[facility] Progress Note Note: Patient presents with complaint of muscular back pain. Pain level 5/10, dull ache. Vital Signs Temperature 98.5 F 08/26/17 07:08 Pulse Rate 85 08/26/17 09:26 Respiratory Rate 18 08/26/17 07:08 Blood Pressure 121/83 08/26/17 09:26 O2 Sat by Pulse Oximetry (%) Obj: General: alert and oriented x 3. In no acute distress. Skin: warm and dry. Ext: no edema, full ROM . MS: + LS spine tenderness. A/P: LBP Will add Lidoderm Patch 5% for back pain. continue to monitor clinically
[2017-08-26] MEDS: hydrOXYzine PAMOATE 50 MG CAPSULE (FP) PO PRN ×2 (18:34→21:37)
[2017-08-26] MEDS: THIAMINE HCL 100 MG TABLET (FP) PO SCH (21:36)
[2017-08-26] MEDS: MELATONIN 5 MG TABLETS PO PRN (21:37)
[2017-08-26] MEDS: LIDOCAINE PATCH REMOVAL MC SCH (21:37)
[2017-08-26] MEDS: LURASIDONE HCL 40 MG TABLET PO SCH (21:38)
[2017-08-26] MEDS ORDERED: diphenhydrAMINE HCL 25 MG CAPSULE (FP) PO ONE (22:45)
[2017-08-26] MEDS ORDERED: HALOPERIDOL 5 MG TABLET (FP) PO ONE ×2 (22:45)
[2017-08-27] MEDS: EMTRICITAB/RILPIVIRINE/TENOFOV 1 EACH TABLET PO SCH (07:13)
[2017-08-27] MEDS: LIDOCAINE 5% TOPICAL PATCH TP SCH (10:40)
[2017-08-27] MEDS: PRENATAL VITAMINS W/ FOLIC ACID TABLET (FP) PO SCH (10:40)
[2017-08-27] MEDS: NICOTINE 14 MG/24 HOURS TOPICAL PATCH TD SCH (10:40)
[2017-08-27] MEDS: HYDROCHLOROTHIAZIDE 25 MG TABLET (FP) PO SCH (10:41)
[2017-08-27] MEDS: BUDESONIDE/FORMETEROL FUMARATE 160/4.5 mcg INHALER IH SCH ×2 (10:41→21:41)
[2017-08-27] MEDS: BUPRENORPHINE/NALOXONE 2 MG/0.5 MG FILM PACKET SL SCH (10:41)
[2017-08-27] MEDS ORDERED: COLLOIDAL OATMEAL 1 BAR EACH TP PRN (13:16)
[2017-08-27] MEDS ORDERED: HYDROCORTISONE 1% TOPICAL LOTION 118 ML BOTTLE TP PRN (13:16)
--- NOTE | 2017-08-27 13:19 | PN ---
[facility] Progress Note Note: Patient c/o of dry skin Vital Signs Temperature 98.1 F 08/27/17 07:27 Pulse Rate 94 H 08/27/17 10:00 Respiratory Rate 18 08/27/17 10:00 Blood Pressure 110/73 08/27/17 10:00 O2 Sat by Pulse Oximetry (%) A/P Increase fluids Aveno soap hydrocortisone lotion continue to monitor
[2017-08-27] MEDS ORDERED: LURASIDONE HCL 40 MG TABLET PO SCH (15:49)
--- NOTE | 2017-08-27 15:50 | PN ---
[facility] Progress Note Vital Signs: Vital Signs Period Temp Pulse Resp BP Sys/Martinez Pulse Ox Last 24 Hr 98.1 F 85-94 -18 104-110/71-73 Date of Session: 08/27/17 Chief Complaint:: "I am anxious, I have mood swings" HPI: Patient is addressing alcohol, cocaine, opioid, cannabis dependence comorbid Bipolar disorder. ROS: HIV+ dx in 1988,HTN,Diverticulosis,BA,H/O STD Current Medications: Active Medications Generic Name Dose Route Start Last Admin Trade Name Freq PRN Reason Stop Dose Admin Acetaminophen 650 mg 08/19/17 12:52 Tylenol - PO Q4H PRN FEVER Al Hydroxide/Mg Hydroxide 30 ml 08/19/17 12:52 Mylanta Oral Suspension - PO Q6H PRN DYSPEPSIA Albuterol Sulfate 2 puff 08/19/17 16:48 Ventolin Hfa Inhaler - IH Q6H PRN wheezing Benzocaine 1 applic 08/22/17 12:25 08/23/17 01:29 Anbesol - MM 1 applic Q2H PRN Administration dental pain Budesonide/Formoterol Fumarate 1 puff 08/19/17 22:00 08/27/17 10:41 Symbicort 160/4.5mcg - IH Not Given BID JOHN Buprenorphine/Naloxone 2 each 08/24/17 10:00 08/27/17 10:41 Suboxone 2mg/0.5mg Sl Film - SL 08/30/17 09:59 2 each DAILY JOHN Administration Colloidal Oatmeal 1 applic 08/27/17 13:16 Aveeno Soap - TP DAILY PRN HYGEINE Emtricitabine/Rilpivirine/Tenofovir 1 each 08/20/17 09:00 08/27/17 07:13 Complera - PO 1 each DAILY@0800 JOHN Administration Eucalyptus/Menthol/Phenol/Sorbitol 1 each 08/19/17 12:52 Cepastat Lozenge - MM Q4H PRN SORE THROAT Guaifenesin 10 ml 08/19/17 12:52 Robitussin Dm - PO Q6H PRN COUGH Haloperidol 1 mg 08/26/17 22:31 Haldol - PO Q4HWA PRN AGITATION Hydrochlorothiazide 25 mg 08/20/17 10:00 08/27/17 10:41 Hctz - PO 25 mg DAILY JOHN Administration Hydrocortisone 1 applic 08/27/17 13:16 Hytone 1% Lotion - TP BID PRN dry skin Hydroxyzine Pamoate 50 mg 08/19/17 12:52 08/26/17 21:37 Vistaril - PO 50 mg Q4H PRN Administration AGITATION Ibuprofen 600 mg 08/22/17 12:24 08/23/17 18:26 Motrin - PO 600 mg Q8H PRN Administration Pain Level 4-6 Lidocaine 1 patch 08/27/17 10:00 08/27/17 10:40 Lidoderm Patch - TP 1 patch DAILY JOHN Administration Loperamide HCl 4 mg 08/19/17 12:52 08/26/17 05:08 Imodium - PO 4 mg Q6H PRN Administration DIARRHEA Lurasidone HCl 40 mg 08/21/17 22:00 08/26/17 21:38 Latuda - PO 40 mg HS JOHN Administration Magnesium Citrate 300 ml 08/19/17 12:52 08/23/17 21:50 Citroma - PO 300 ml Q48H PRN Administration CONSTIPATION Magnesium Hydroxide 30 ml 08/19/17 12:52 Milk Of Magnesia - PO DAILY PRN CONSTIPATION Melatonin 5 mg 08/19/17 22:00 08/26/17 21:37 Melatonin PO 5 mg HS PRN Administration INSOMNIA Miscellaneous 1 each 08/26/17 22:00 08/26/17 21:37 Lidoderm Patch Removal MC 1 each DAILY@2200 JOHN Administration Nicotine 14 mg 08/20/17 10:00 08/27/17 10:40 Nicoderm Patch - TD 14 mg DAILY JOHN Administration Nicotine Polacrilex 2 mg 08/19/17 16:44 08/26/17 14:58 Nicorette Gum - BUC 2 mg Q2H PRN Administration NICOTINE REPLACEMENT RX Ondansetron HCl 8 mg 08/20/17 12:34 08/26/17 08:28 Zofran Odt - SL 8 mg Q8H PRN Administration NAUSEA AND/OR VOMITING Multivit/Folic Acid/Iron 1 tab 08/20/17 10:00 08/27/17 10:40 Vitamins (Sjr) - PO 1 tab DAILY JOHN Administration Pseudoephedrine/Triprolidine 1 combo 08/19/17 12:52 08/21/17 03:25 Actifed - PO 1 combo TID PRN Administration NASAL CONGESTION Thiamine HCl 100 mg 08/19/17 22:00 08/26/17 21:36 Vitamin B1 - PO 100 mg HS JOHN Administration Medication(s) Change(s): will increase Latuda to 60 mg and add Buspar 5mg tid, stat Buspar 5 mg Current Side Effect: No Lab tests ordered: No Lab tests reviewed: Yes Provider note:: Was asked to evaluated patient due to c/o anxiety, mood swings, chart reviewed met with the patient, reports has been feeling very anxious and having mood swings, reeviewed medications with the patient , she currently on LAtuda 40 mg , will increase to 60 mg, discussed with the patient indications and properties of Buspar 5 mg po tid (patient recalled was on this medications in the past), patient agreed with care plan. Psychoeducation and supports provided, continue to monitor progress. Total face to face time:: 25 Mental Status Exam - Mental Status Exam Alert and Oriented to: Time, Place, Person Cognitive Function: Good Patient Appearance: Well Groomed Mood: Sad, Anxious Affect: Appropriate Patient Behavior: Appropriate, Cooperative Speech Pattern: Clear, Appropriate Voice Loudness: Normal Thought Process: Intact, Goal Oriented Thought Disorder: Not Present Hallucinations: Denies Suicidal Ideation: Denies Homicidal Ideation: Denies Insight/Judgement: Fair Sleep: Fair Appetite: Fair Muscle strength/Tone: Normal Gait/Station: Normal Psychiatric Treatment Plan - Problem List (1) Cocaine dependence Current Visit: Yes (2) Alcohol dependence Current Visit: Yes (3) Bipolar disorder Current Visit: Yes Comment: History. (4) Cannabis dependence Current Visit: Yes (5) GERD (gastroesophageal reflux disease) Current Visit: Yes Qualifiers: Esophagitis presence: esophagitis presence not specified Qualified Code(s) : K21.9 - Gastro-esophageal reflux disease without esophagitis (6) HIV (human immunodeficiency virus infection) Current Visit: Yes (7) HTN (hypertension) Current Visit: Yes Qualifiers: Hypertension type: unspecified Qualified Code(s): I10 - Essential (primary ) hypertension (8) Opioid dependence Current Visit: Yes
[2017-08-27] MEDS ORDERED: busPIRone HCL 5 MG TABLET PO ONE (16:15)
[2017-08-27] MEDS: LURASIDONE HCL 40 MG, LURASIDONE HCL 20 MG PO SCH (21:39)
[2017-08-27] MEDS: THIAMINE HCL 100 MG TABLET (FP) PO SCH (21:40)
[2017-08-27] MEDS: busPIRone HCL 5 MG TABLET PO SCH (21:40)
[2017-08-27] MEDS: LIDOCAINE PATCH REMOVAL MC SCH (21:41)
[2017-08-28] MEDS: busPIRone HCL 5 MG TABLET PO SCH ×3 (07:04→21:33)
[2017-08-28] MEDS: EMTRICITAB/RILPIVIRINE/TENOFOV 1 EACH TABLET PO SCH (07:33)
[2017-08-28] MEDS: PRENATAL VITAMINS W/ FOLIC ACID TABLET (FP) PO SCH (10:36)
[2017-08-28] MEDS: HYDROCHLOROTHIAZIDE 25 MG TABLET (FP) PO SCH (10:36)
[2017-08-28] MEDS: HALOPERIDOL 1 MG TABLET (FP) PO PRN ×3 (10:37→22:09)
[2017-08-28] MEDS: LIDOCAINE 5% TOPICAL PATCH TP SCH (10:37)
[2017-08-28] MEDS: NICOTINE 14 MG/24 HOURS TOPICAL PATCH TD SCH (10:37)
[2017-08-28] MEDS: BUPRENORPHINE/NALOXONE 2 MG/0.5 MG FILM PACKET SL SCH (10:38)
[2017-08-28] MEDS: BUDESONIDE/FORMETEROL FUMARATE 160/4.5 mcg INHALER IH SCH ×2 (10:38→21:34)
[2017-08-28] MEDS ORDERED: PT OWN MED DRAWER 7, Y5N ONE ×3 (12:38→21:33)
--- NOTE | 2017-08-28 18:04 | PN ---
[facility] Progress Note Note: Psychiatric nurse practitioner note delayed: Pt. requesting to speak to narrative writer to address her concerns on her current medications. Dr. Peraza's and Dr. Giles's note read and appreciated. Pt. complaining of increase anxiety and was ordered buspar 5mg TID. Pt. reports feeling "odd" this morning after accepting buspar and haldol prn.Pt. encouraged to utilized her coping skills when her anxiety increases. Pt. encouraged to accept medications but also informed of her right to refuse medications. Pt satisfied and receptive to feedback. Will continue to monitor.
[2017-08-28] MEDS: THIAMINE HCL 100 MG TABLET (FP) PO SCH (21:33)
[2017-08-28] MEDS: LURASIDONE HCL 40 MG, LURASIDONE HCL 20 MG PO SCH (21:34)
[2017-08-28] MEDS: LIDOCAINE PATCH REMOVAL MC SCH (21:34)
[2017-08-29] MEDS ORDERED: PT OWN MED DRAWER 7, Y5N ONE ×4 (05:22→19:55)
[2017-08-29] MEDS: busPIRone HCL 5 MG TABLET PO SCH ×3 (06:39→21:43)
[2017-08-29] MEDS: EMTRICITAB/RILPIVIRINE/TENOFOV 1 EACH TABLET PO SCH (07:41)
[2017-08-29] MEDS: BUPRENORPHINE/NALOXONE 2 MG/0.5 MG FILM PACKET SL SCH (10:25)
[2017-08-29] MEDS: PRENATAL VITAMINS W/ FOLIC ACID TABLET (FP) PO SCH (10:25)
[2017-08-29] MEDS: HYDROCHLOROTHIAZIDE 25 MG TABLET (FP) PO SCH (10:25)
[2017-08-29] MEDS: NICOTINE 14 MG/24 HOURS TOPICAL PATCH TD SCH (10:25)
[2017-08-29] MEDS: BUDESONIDE/FORMETEROL FUMARATE 160/4.5 mcg INHALER IH SCH ×2 (10:26→21:43)
[2017-08-29] MEDS: LIDOCAINE 5% TOPICAL PATCH TP SCH (10:26)
--- NOTE | 2017-08-29 13:50 | PN ---
[facility] Progress Note Note: Vital Signs Temperature 98.0 F 08/29/17 07:22 Pulse Rate 92 H 08/29/17 09:46 Respiratory Rate 18 08/29/17 07:22 Blood Pressure 118/84 08/29/17 09:46 O2 Sat by Pulse Oximetry (%) Patient c/o of thick vaginal discharge. Patient denies dysuria, but reports urinary frequency and mild pelvic tenderness on deep palpation. Obj: Skin warm and dry. Ambulating within unit in NAD. Normal HR and Rhythm Lungs clear through out, no adventitious breath sounds + external itching to vaginal area, and discharge + mild left pelvic tenderness on deep palpation A/P: Will order Clotrimazole VG x 3 days Repeat U/ A Increase fluids continue to monitor clinically
[2017-08-29] MEDS: HALOPERIDOL 1 MG TABLET (FP) PO PRN (18:38)
[2017-08-29] MEDS: THIAMINE HCL 100 MG TABLET (FP) PO SCH (21:43)
[2017-08-29] MEDS: LIDOCAINE PATCH REMOVAL MC SCH (21:43)
[2017-08-29] MEDS: CLOTRIMAZOLE 1% VAGINAL CREAM WITH APPLICATOR 45 GM TUBE VG SCH (21:43)
[2017-08-29] MEDS: LURASIDONE HCL 40 MG, LURASIDONE HCL 20 MG PO SCH (21:44)
[2017-08-30] MEDS ORDERED: PT OWN MED DRAWER 7, Y5N ONE ×5 (06:02→21:42)
[2017-08-30] MEDS: busPIRone HCL 5 MG TABLET PO SCH ×3 (06:27→21:39)
[2017-08-30] MEDS: MAGNESIUM HYDROX 2400MG/30ML ORAL SUSPENSION 30 ML CUP PO PRN (06:29)
[2017-08-30] MEDS: EMTRICITAB/RILPIVIRINE/TENOFOV 1 EACH TABLET PO SCH (07:59)
[2017-08-30] MEDS: NICOTINE 14 MG/24 HOURS TOPICAL PATCH TD SCH (10:44)
[2017-08-30] MEDS: HYDROCHLOROTHIAZIDE 25 MG TABLET (FP) PO SCH (10:44)
[2017-08-30] MEDS: HALOPERIDOL 1 MG TABLET (FP) PO PRN ×2 (10:44→18:49)
[2017-08-30] MEDS: LIDOCAINE 5% TOPICAL PATCH TP SCH (10:44)
[2017-08-30] MEDS: PRENATAL VITAMINS W/ FOLIC ACID TABLET (FP) PO SCH (10:45)
[2017-08-30] MEDS: BUDESONIDE/FORMETEROL FUMARATE 160/4.5 mcg INHALER IH SCH ×2 (10:46→21:41)
--- NOTE | 2017-08-30 12:28 | PN ---
[facility] Progress Note Note: Patient continues to have anxiety and tremors due to withdrawal although she reports they have mildly improved with suboxone. Vital Signs Temperature 98.2 F 08/30/17 07:23 Pulse Rate 96 H 08/30/17 09:30 Respiratory Rate 18 08/30/17 07:23 Blood Pressure 113/79 08/30/17 09:30 O2 Sat by Pulse Oximetry (%) Obj: Psych: alert and oriented x 3. In no acute distress. +anxiety. Denies SI/HI. Mild tremors of hands. A/P: Withdrawal syndrome Suboxone increased to 8mg today then once daily starting in am continue to monitor clinically
[2017-08-30] MEDS ORDERED: BUPRENORPHINE/NALOXONE 8 MG/2 MG FILM PACKET SL ONE (12:45)
[2017-08-30] MEDS: IBUPROFEN 600 MG TABLET (FP) PO PRN (15:55)
[2017-08-30] MEDS: THIAMINE HCL 100 MG TABLET (FP) PO SCH (21:39)
[2017-08-30] MEDS: hydrOXYzine PAMOATE 50 MG CAPSULE (FP) PO PRN (21:40)
[2017-08-30] MEDS: LURASIDONE HCL 40 MG, LURASIDONE HCL 20 MG PO SCH (21:41)
[2017-08-30] MEDS: LIDOCAINE PATCH REMOVAL MC SCH (21:41)
[2017-08-30] MEDS: CLOTRIMAZOLE 1% VAGINAL CREAM WITH APPLICATOR 45 GM TUBE VG SCH (21:42)
[2017-08-31] MEDS: busPIRone HCL 5 MG TABLET PO SCH ×3 (06:18→21:37)
[2017-08-31] MEDS: MAGNESIUM HYDROX 2400MG/30ML ORAL SUSPENSION 30 ML CUP PO PRN (06:19)
[2017-08-31] MEDS: EMTRICITAB/RILPIVIRINE/TENOFOV 1 EACH TABLET PO SCH (07:43)
[2017-08-31] MEDS ORDERED: PT OWN MED DRAWER 7, Y5N ONE ×2 (07:46→21:39)
[2017-08-31] MEDS: LIDOCAINE 5% TOPICAL PATCH TP SCH (10:37)
[2017-08-31] MEDS: NICOTINE 14 MG/24 HOURS TOPICAL PATCH TD SCH (10:37)
[2017-08-31] MEDS: PRENATAL VITAMINS W/ FOLIC ACID TABLET (FP) PO SCH (10:38)
[2017-08-31] MEDS: BUPRENORPHINE/NALOXONE 8 MG/2 MG FILM PACKET SL SCH (10:38)
[2017-08-31] MEDS: BUDESONIDE/FORMETEROL FUMARATE 160/4.5 mcg INHALER IH SCH ×2 (10:38→21:37)
[2017-08-31] MEDS: HYDROCHLOROTHIAZIDE 25 MG TABLET (FP) PO SCH (10:38)
[2017-08-31] MEDS: MAGNESIUM CITRATE 300 ML BOTTLE PO PRN (13:26)
[2017-08-31] MEDS: HALOPERIDOL 1 MG TABLET (FP) PO PRN ×2 (15:42→21:37)
[2017-08-31] MEDS ORDERED: MINERAL OIL ENEMA 133 ML ENEMA PR ONE (18:00)
[2017-08-31] MEDS: LIDOCAINE PATCH REMOVAL MC SCH (21:37)
[2017-08-31] MEDS: THIAMINE HCL 100 MG TABLET (FP) PO SCH (21:37)
[2017-08-31] MEDS: LURASIDONE HCL 40 MG, LURASIDONE HCL 20 MG PO SCH (21:39)
[2017-08-31] MEDS: CLOTRIMAZOLE 1% VAGINAL CREAM WITH APPLICATOR 45 GM TUBE VG SCH (21:47)
[2017-09-01] MEDS: busPIRone HCL 5 MG TABLET PO SCH ×3 (06:20→21:31)
[2017-09-01] MEDS ORDERED: PT OWN MED DRAWER 7, Y5N ONE ×2 (06:28→20:22)
[2017-09-01] MEDS: EMTRICITAB/RILPIVIRINE/TENOFOV 1 EACH TABLET PO SCH (07:27)
[2017-09-01] MEDS: PRENATAL VITAMINS W/ FOLIC ACID TABLET (FP) PO SCH (10:28)
[2017-09-01] MEDS: HYDROCHLOROTHIAZIDE 25 MG TABLET (FP) PO SCH (10:28)
[2017-09-01] MEDS: NICOTINE 14 MG/24 HOURS TOPICAL PATCH TD SCH (10:28)
[2017-09-01] MEDS: LIDOCAINE 5% TOPICAL PATCH TP SCH (10:29)
[2017-09-01] MEDS: BUDESONIDE/FORMETEROL FUMARATE 160/4.5 mcg INHALER IH SCH ×2 (10:29→21:33)
[2017-09-01] MEDS: BUPRENORPHINE/NALOXONE 8 MG/2 MG FILM PACKET SL SCH (10:29)
[2017-09-01] MEDS: IBUPROFEN 600 MG TABLET (FP) PO PRN (12:55)
[2017-09-01] MEDS: HALOPERIDOL 1 MG TABLET (FP) PO PRN ×2 (12:55→21:34)
[2017-09-01] MEDS: hydrOXYzine PAMOATE 50 MG CAPSULE (FP) PO PRN (17:43)
[2017-09-01] MEDS: LURASIDONE HCL 40 MG, LURASIDONE HCL 20 MG PO SCH (21:31)
[2017-09-01] MEDS: THIAMINE HCL 100 MG TABLET (FP) PO SCH (21:31)
[2017-09-01] MEDS: LIDOCAINE PATCH REMOVAL MC SCH (21:33)
[2017-09-01] MEDS: CLOTRIMAZOLE 1% VAGINAL CREAM WITH APPLICATOR 45 GM TUBE VG SCH (21:33)
[2017-09-02] MEDS: busPIRone HCL 5 MG TABLET PO SCH (06:25)
--- NOTE | 2017-09-02 07:03 | PN ---
Psychiatric Progress Note Vital Signs: Vital Signs Period Temp Pulse Resp BP Sys/Martinez Pulse Ox Last 24 Hr 98.5 F 87-93 16-18 105-108/71-73 Date of Session: 09/02/17 Chief Complaint:: Discharge Note HPI: Patient addressing Alcohol, Opioid, Cocaine and Cannabis Dependence comorbid with Nicotine Dependence and Bipolar Disorder ROS: Asthma, HTN, HIV, GERD Current Medications: Active Medications Generic Name Dose Route Start Last Admin Trade Name Freq PRN Reason Stop Dose Admin Acetaminophen 650 mg 08/19/17 12:52 Tylenol - PO Q4H PRN FEVER Al Hydroxide/Mg Hydroxide 30 ml 08/19/17 12:52 Mylanta Oral Suspension - PO Q6H PRN DYSPEPSIA Albuterol Sulfate 2 puff 08/19/17 16:48 Ventolin Hfa Inhaler - IH Q6H PRN wheezing Benzocaine 1 applic 08/22/17 12:25 08/23/17 01:29 Anbesol - MM 1 applic Q2H PRN Administration dental pain Budesonide/Formoterol Fumarate 1 puff 08/19/17 22:00 09/01/17 21:33 Symbicort 160/4.5mcg - IH Not Given BID JOHN Buprenorphine/Naloxone 1 each 08/31/17 10:00 09/01/17 10:29 Suboxone 8mg/2mg Sl Film - SL 09/06/17 09:59 1 each DAILY JOHN Administration Buspirone HCl 5 mg 08/27/17 22:00 09/02/17 06:25 Buspar - PO 5 mg TID JOHN Administration Clotrimazole 1 applic 08/29/17 22:00 09/01/17 21:33 Gyne-Lotrimin - VG 1 applic HS JOHN Administration Colloidal Oatmeal 1 applic 08/27/17 13:16 08/27/17 16:38 Aveeno Soap - TP 1 bar DAILY PRN Administration HYGEINE Emtricitabine/Rilpivirine/Tenofovir 1 each 08/20/17 09:00 09/01/17 07:27 Complera - PO 1 each DAILY@0800 JOHN Administration Eucalyptus/Menthol/Phenol/Sorbitol 1 each 08/19/17 12:52 Cepastat Lozenge - MM Q4H PRN SORE THROAT Guaifenesin 10 ml 08/19/17 12:52 Robitussin Dm - PO Q6H PRN COUGH Haloperidol 1 mg 08/26/17 22:31 09/01/17 21:34 Haldol - PO 1 mg Q4HWA PRN Administration AGITATION Hydrochlorothiazide 25 mg 08/20/17 10:00 09/01/17 10:28 Hctz - PO 25 mg DAILY JOHN Administration Hydrocortisone 1 applic 08/27/17 13:16 Hytone 1% Lotion - TP BID PRN dry skin Hydroxyzine Pamoate 50 mg 08/19/17 12:52 09/01/17 17:43 Vistaril - PO 50 mg Q4H PRN Administration AGITATION Ibuprofen 600 mg 08/22/17 12:24 09/01/17 12:55 Motrin - PO 600 mg Q8H PRN Administration Pain Level 4-6 Lidocaine 1 patch 08/27/17 10:00 09/01/17 10:29 Lidoderm Patch - TP 1 patch DAILY JOHN Administration Loperamide HCl 4 mg 08/19/17 12:52 08/26/17 05:08 Imodium - PO 4 mg Q6H PRN Administration DIARRHEA Lurasidone HCl 40 mg/ 60 mg 08/27/17 22:00 09/01/17 21:31 Lurasidone HCl 20 mg PO 60 mg HS JOHN Administration Magnesium Hydroxide 30 ml 08/19/17 12:52 08/31/17 06:19 Milk Of Magnesia - PO 30 ml DAILY PRN Administration CONSTIPATION Melatonin 5 mg 08/19/17 22:00 08/26/17 21:37 Melatonin PO 5 mg HS PRN Administration INSOMNIA Miscellaneous 1 each 08/26/17 22:00 09/01/17 21:33 Lidoderm Patch Removal MC 1 each DAILY@2200 JOHN Administration Nicotine 14 mg 08/20/17 10:00 09/01/17 10:28 Nicoderm Patch - TD 14 mg DAILY JOHN Administration Nicotine Polacrilex 2 mg 08/19/17 16:44 08/26/17 14:58 Nicorette Gum - BUC 2 mg Q2H PRN Administration NICOTINE REPLACEMENT RX Ondansetron HCl 8 mg 08/20/17 12:34 08/26/17 08:28 Zofran Odt - SL 8 mg Q8H PRN Administration NAUSEA AND/OR VOMITING Multivit/Folic Acid/Iron 1 tab 08/20/17 10:00 04/22/18 10:28 Vitamins (Sjr) - PO 1 tab DAILY JOHN Administration Pseudoephedrine/Triprolidine 1 combo 08/19/17 12:52 08/21/17 03:25 Actifed - PO 1 combo TID PRN Administration NASAL CONGESTION Thiamine HCl 100 mg 08/19/17 22:00 09/01/17 21:31 Vitamin B1 - PO 100 mg HS JOHN Administration Current Side Effect: No Lab tests ordered: Yes Lab tests reviewed: Yes Provider note:: Patient has completed this program today. She has met her treatment goals and will continue to address her issues in outpatient treatment [facility]. 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 Scripts for 30 days supply of these medications will be electronically transmitted to [facility] at [address] [place] [phone]. She is stable for discharge today Total face to face time:: 35 Psychiatric Treatment Plan - Problem List (1) Alcohol dependence Current Visit: Yes (2) Opioid dependence Current Visit: Yes (3) Cocaine dependence Current Visit: Yes (4) Cannabis dependence Current Visit: Yes (5) Nicotine dependence Current Visit: Yes (6) Bipolar disorder Current Visit: Yes Comment: History. (7) Low back pain Current Visit: Yes Qualifiers: Chronicity: unspecified (8) Asthma Current Visit: Yes (9) GERD (gastroesophageal reflux disease) Current Visit: Yes Qualifiers: Esophagitis presence: esophagitis presence not specified Qualified Code(s) : K21.9 - Gastro-esophageal reflux disease without esophagitis (10) HIV (human immunodeficiency virus infection) Current Visit: Yes (11) HTN (hypertension) Current Visit: Yes Qualifiers: Hypertension type: essential hypertension Qualified Code(s): I10 - Essential (primary) hypertension Initial treatment plan: Patient is discharged today and referred to [facility] for outpatient treatment
[2017-09-02] MEDS: EMTRICITAB/RILPIVIRINE/TENOFOV 1 EACH TABLET PO SCH (07:04)
[2017-09-02 07:10] VITALS: TEMP 97.8
[2017-09-02] MEDS ORDERED: PT OWN MED DRAWER 7, Y5N ONE (08:34)
[2017-09-02] MEDS: PRENATAL VITAMINS W/ FOLIC ACID TABLET (FP) PO SCH (09:05)
[2017-09-02] MEDS: HYDROCHLOROTHIAZIDE 25 MG TABLET (FP) PO SCH (09:05)
[2017-09-02] MEDS: BUPRENORPHINE/NALOXONE 8 MG/2 MG FILM PACKET SL SCH (09:06)
[2017-09-02] MEDS: LIDOCAINE 5% TOPICAL PATCH TP SCH (09:06)
[2017-09-02] MEDS: NICOTINE 14 MG/24 HOURS TOPICAL PATCH TD SCH (09:06)
[2017-09-02] MEDS: BUDESONIDE/FORMETEROL FUMARATE 160/4.5 mcg INHALER IH SCH (09:06)
[2017-09-02 09:11] VITALS: BP 112/73; PULSE 101
== END 2017-09-02 10:18 | disposition home or self-care (01) | DRG 772 ==
LOC: YASAS 11:11 → Y3E 11:12
PROVIDERS: ADMIT Psychiatry & Neurology Psychiatry; ATTEND Psychiatry & Neurology Psychiatry
PROC: HZ42ZZZ Group Counseling for Substance Abuse Treatment, Cognitive-Behavioral (ICD-10-PCS; principal; 2017-08-19)
DX: F11.20 Opioid dependence, uncomplicated (principal); F10.20 Alcohol dependence, uncomplicated; F14.20 Cocaine dependence, uncomplicated; F12.20 Cannabis dependence, uncomplicated; F17.210 Nicotine dependence, cigarettes, uncomplicated; F31.9 Bipolar disorder, unspecified; I10 Essential (primary) hypertension; K21.9 Gastro-esophageal reflux disease without esophagitis; J45.909 Unspecified asthma, uncomplicated; M54.5 Low back pain; R35.0 Frequency of micturition; B37.3 Candidiasis of vulva and vagina; Z51.81 Encounter for therapeutic drug level monitoring; Z21 Asymptomatic human immunodeficiency virus [HIV] infection status; Z88.8 Allergy status to other drugs, medicaments and biological substances
CPT/HCPCS: 93005; 93010; J0735; Q0162

== ENCOUNTER 2022-09-24 16:58 | Inpatient (IN) | payer OTHER ==
[2022-09-24 19:02] VITALS: BMI 23.9
[2022-09-24] MEDS ORDERED: NICOTINE POLACRILEX 2 MG GUM BUC PRN (20:53)
[2022-09-24] MEDS ORDERED: DICYCLOMINE HCL 10 MG CAPSULE PO PRN (20:53)
[2022-09-24] MEDS ORDERED: IBUPROFEN 600 MG TABLET (FP) PO PRN (20:53)
[2022-09-24] MEDS ORDERED: guaiFENesin 600 MG TABLET.ER (FP) PO PRN (20:53)
[2022-09-24] MEDS ORDERED: ACETAMINOPHEN 325 MG TABLET (FP) PO PRN ×2 (20:53)
[2022-09-24] MEDS ORDERED: NALOXONE HCL (KLOXXADO) 8 MG SPRAY NS PRN (20:53)
[2022-09-24] MEDS ORDERED: BENZONATATE 200 MG CAPSULE PO PRN (20:53)
[2022-09-24] MEDS ORDERED: POLYETHYLENE GLYCOL (HEALTHYLAX) 3350 17 GM PACKET PO PRN (20:53)
[2022-09-24] MEDS ORDERED: BENZOCAINE/MENTHOL (CHLORASEPTIC ) LOZENGE MM PRN (20:53)
[2022-09-24] MEDS ORDERED: IBUPROFEN 400 MG TABLET (FP) PO PRN (20:53)
[2022-09-24] MEDS ORDERED: NALOXONE HCL 0.4 MG/ML VIAL IM PRN (20:53)
[2022-09-24] MEDS ORDERED: ONDANSETRON *ODT* 4 MG TABLET SL PRN (20:53)
[2022-09-24] MEDS ORDERED: BISMUTH SUBSALICYLATE 524 MG/30 ML PO PRN (20:53)
[2022-09-24] MEDS ORDERED: P-EPHED 60MG/TRIPROLIDI 2.5MG TABLET PO PRN (20:53)
[2022-09-24] MEDS ORDERED: MAG HYDROX/AL HYDROX/SIMETH 30 ML UNIT-DOSE CUP PO PRN (20:53)
[2022-09-24] MEDS ORDERED: MAGNESIUM HYDROX 2400MG/30ML ORAL SUSPENSION 30 ML CUP PO PRN (20:53)
[2022-09-24] MEDS ORDERED: LOPERAMIDE HCL 2 MG CAPSULE PO PRN (20:53)
[2022-09-24] MEDS ORDERED: diphenhydrAMINE HCL 25 MG CAPSULE (FP) PO ONE ×2 (20:55→21:28)
[2022-09-24] MEDS ORDERED: methaDONE HCL 10 MG TABLET (FOR DETOX USE ONLY) ONE (21:29)
[2022-09-24] MEDS ORDERED: methaDONE HCL 10 MG TABLET (FOR DETOX USE ONLY) PO ONE (22:00)
[2022-09-24] MEDS: THIAMINE HCL 100 MG TABLET (FP) PO SCH (22:28)
[2022-09-24] MEDS: MELATONIN 5 MG TABLETS PO SCH (22:29)
[2022-09-24] MEDS: cloNIDine HCL 0.1 MG TABLET PO PRN (23:45)
[2022-09-25] MEDS: PRENATAL VITAMINS W/ FOLIC ACID TABLET (FP) PO SCH (10:13)
[2022-09-25 11:43] LABS: HEMATOCRIT 33.2 % (32.4-45.2); HEMOGLOBIN 11.3 GM/dL (10.7-15.3); MCH 31.5 pg (25.7-33.7); MCHC 34.2 g/dl (32.0-36.0); MEAN CELL VOLUME 92.1 fl (80-96); MEAN PLT VOLUME 10.2 fl (7.5-11.1); PLATELET COUNT 151 10^3/uL (134-434); RDW 13.3 % (11.6-15.6); WHITE BLOOD COUNT 5.4 K/mm3 (4.0-10.0)
[2022-09-25 11:46] LABS: POTASSIUM 3.9 mmol/L (3.5-5.1)
[2022-09-25 12:10] LABS: ALBUMIN 2.7 g/dl (3.4-5.0); BLOOD UREA NITROGEN 11.1 mg/dL (7-18); CALCIUM 8.6 mg/dL (8.5-10.1)
[2022-09-25 12:13] LABS: CREATININE 0.6 mg/dL (0.55-1.3)
[2022-09-25 12:15] LABS: BILIRUBIN,TOTAL 0.2 mg/dL (0.2-1); TOT PROT 6.6 g/dl (6.4-8.2)
[2022-09-25] MEDS: diazePAM 5 MG TABLET PO PRN ×2 (17:27→22:36)
[2022-09-25] MEDS: THIAMINE HCL 100 MG TABLET (FP) PO SCH (22:36)
[2022-09-25] MEDS: MELATONIN 5 MG TABLETS PO SCH (22:36)
[2022-09-26] MEDS ORDERED: methaDONE HCL 10 MG TABLET (FOR DETOX USE ONLY) PO ONE (10:00)
[2022-09-26] MEDS: diazePAM 5 MG TABLET PO PRN ×3 (10:25→23:03)
[2022-09-26] MEDS: PRENATAL VITAMINS W/ FOLIC ACID TABLET (FP) PO SCH (10:30)
[2022-09-26] MEDS ORDERED: METHOCARBAMOL 500 MG TABLET PO PRN (12:42)
[2022-09-26] MEDS: cloNIDine HCL 0.1 MG TABLET PO PRN (13:27)
[2022-09-26] MEDS: THIAMINE HCL 100 MG TABLET (FP) PO SCH (22:02)
[2022-09-26] MEDS: MELATONIN 5 MG TABLETS PO SCH (22:02)
[2022-09-27 10:04] VITALS: BP 136/70; PULSE 73; RESP 17; TEMP 96.9
[2022-09-27] MEDS: PRENATAL VITAMINS W/ FOLIC ACID TABLET (FP) PO SCH (10:12)
== END 2022-09-27 10:26 | disposition home or self-care (01) | DRG 773 ==
LOC: YASAS 16:58 → Y6N 21:36
PROVIDERS: ADMIT Allergy & Immunology; ATTEND Surgery
PROC: HZ2ZZZZ Detoxification Services for Substance Abuse Treatment (ICD-10-PCS; principal; 2022-09-24)
DX: F11.23 Opioid dependence with withdrawal (principal); F10.20 Alcohol dependence, uncomplicated; F14.20 Cocaine dependence, uncomplicated; F17.210 Nicotine dependence, cigarettes, uncomplicated; F31.9 Bipolar disorder, unspecified; F19.24 Other psychoactive substance dependence with psychoactive substance-induced mood disorder; B20 Human immunodeficiency virus [HIV] disease; I10 Essential (primary) hypertension; J45.909 Unspecified asthma, uncomplicated; K21.9 Gastro-esophageal reflux disease without esophagitis; Z62.810 Personal history of physical and sexual abuse in childhood; Z86.19 Personal history of other infectious and parasitic diseases; Z88.0 Allergy status to penicillin; Z88.1 Allergy status to other antibiotic agents
CPT/HCPCS: 36415; 71046-TC-FY; 80053; 81025; 85027; 86593; 86780; C9803-CS; U0003; U0005

== ENCOUNTER 2024-06-22 11:59 | Inpatient (IN) | payer OTHER ==
[2024-06-22 12:47] VITALS: BMI 23.8
[2024-06-22] MEDS ORDERED: IBUPROFEN 400 MG TABLET (FP) PO PRN (12:59)
[2024-06-22] MEDS ORDERED: guaiFENesin 600 MG TABLET.ER (FP) PO PRN (12:59)
[2024-06-22] MEDS ORDERED: ACETAMINOPHEN 325 MG TABLET (FP) PO PRN (12:59)
[2024-06-22] MEDS ORDERED: DICYCLOMINE HCL 10 MG CAPSULE PO PRN (12:59)
[2024-06-22] MEDS ORDERED: IBUPROFEN 600 MG TABLET (FP) PO PRN (12:59)
[2024-06-22] MEDS ORDERED: NICOTINE POLACRILEX 2 MG LOZENGE BC PRN (12:59)
[2024-06-22] MEDS ORDERED: BISMUTH SUBSALICYLATE 262 MG/15 ML BTL PO PRN (12:59)
[2024-06-22] MEDS ORDERED: NALOXONE (NARCAN) HCL 4 MG/0.1 ML SPRAY NS PRN (12:59)
[2024-06-22] MEDS ORDERED: LOPERAMIDE HCL 2 MG CAPSULE PO PRN (12:59)
[2024-06-22] MEDS ORDERED: MAGNESIUM HYDROX 2400MG/30ML ORAL SUSPENSION 30 ML CUP PO PRN (12:59)
[2024-06-22] MEDS ORDERED: MAG HYDROX/AL HYDROX/SIMETH 30 ML UNIT-DOSE CUP PO PRN (12:59)
[2024-06-22] MEDS ORDERED: BENZONATATE 200 MG CAPSULE PO PRN (12:59)
[2024-06-22] MEDS ORDERED: POLYETHYLENE GLYCOL (HEALTHYLAX) 3350 17 GM PACKET PO PRN (12:59)
[2024-06-22] MEDS ORDERED: BENZOCAINE/MENTHOL (CHLORASEPTIC ) LOZENGE MM PRN (12:59)
[2024-06-22] MEDS ORDERED: ALBUTEROL SO4 HFA INHALER IH SCH (13:15)
[2024-06-22] MEDS ORDERED: cloNIDine HCL 0.1 MG TABLET ONE (14:46)
[2024-06-22] MEDS ORDERED: methaDONE HCL 10 MG TABLET (FOR DETOX USE ONLY) ONE (14:46)
[2024-06-22] MEDS: methaDONE HCL 10 MG TABLET PO ONE (14:47)
[2024-06-22] MEDS: cloNIDine HCL 0.1 MG TABLET PO SCH (14:47)
[2024-06-22] MEDS: diazePAM 5 MG TABLET PO PRN (23:20)
[2024-06-22] MEDS: THIAMINE 100 MG TABLET PO SCH (23:20)
[2024-06-22] MEDS: METHOCARBAMOL 500 MG TABLET PO PRN (23:20)
[2024-06-22] MEDS: MELATONIN 5 MG TABLETS PO SCH (23:21)
[2024-06-22] MEDS: BUDESONIDE/FORMETEROL FUMARATE 160/4.5 mcg INHALER IH SCH (23:21)
[2024-06-23] MEDS: EMTRICITAB/RILPIVIRI/TENOF ALA (ODEFSEY) TABLET PO SCH (07:09)
[2024-06-23] MEDS: methaDONE 40 MG, methaDONE 10 MG PO ONE (09:36)
[2024-06-23] MEDS: HYDROCHLOROTHIAZIDE 25 MG TABLET (FP) PO SCH (09:37)
[2024-06-23] MEDS: PRENATAL VITAMINS W/ FOLIC ACID TABLET (FP) PO SCH (09:37)
[2024-06-23] MEDS: NICOTINE 21 MG/24 HOURS TOPICAL PATCH TD SCH (09:38)
[2024-06-23 12:10] LABS: HEMATOCRIT 33.6 % (32.4-45.2); HEMOGLOBIN 11.2 GM/dL (10.7-15.3); MCHC 33.5 g/dl (32.0-36.0); MEAN CELL VOLUME 92.5 fl (80-96); MEAN PLT VOLUME 10.2 fl (7.5-11.1); PLATELET COUNT 174 10^3/uL (134-434); POTASSIUM 3.7 mmol/L (3.5-5.1); RBC 3.63 M/mm3 (3.60-5.2); RDW 15.2 % (11.6-15.6); WHITE BLOOD COUNT 7.4 K/mm3 (4.0-10.0)
[2024-06-23 12:17] LABS: ALBUMIN 3.1 g/dl (3.4-5.0); BLOOD UREA NITROGEN 12.9 mg/dL (7-18)
[2024-06-23 12:20] LABS: CREATININE 0.9 mg/dL (0.55-1.3)
[2024-06-23 12:21] LABS: BILIRUBIN,TOTAL 0.4 mg/dL (0.2-1); TOT PROT 7.4 g/dl (6.4-8.2)
[2024-06-23] MEDS: LURASIDONE HCL 40 MG TABLET PO SCH (22:44)
[2024-06-24] MEDS: methaDONE 40 MG, methaDONE 20 MG PO ONE (09:11)
[2024-06-24] MEDS: hydrOXYzine PAMOATE 25 MG CAPSULE (FP) PO PRN (11:39)
[2024-06-24] MEDS: cloNIDine HCL 0.1 MG TABLET PO PRN (22:21)
[2024-06-25] MEDS: methaDONE 40 MG, methaDONE 30 MG PO ONE (09:29)
[2024-06-25] MEDS: ONDANSETRON *ODT* 4 MG TABLET SL PRN (10:42)
[2024-06-26] MEDS: methaDONE HCL 40 MG DISPERSABLE TABLET PO ONE (09:16)
[2024-06-26] MEDS: MELATONIN 5 MG TABLETS PO SCH (22:55)
[2024-06-26] MEDS: ALBUTEROL SO4 HFA INHALER IH PRN (22:55)
[2024-06-27 09:35] VITALS: BP 143/87; PULSE 74; RESP 16; TEMP 97.7
[2024-06-27] MEDS: methaDONE 80 MG, methaDONE 10 MG PO ONE (09:49)
== END 2024-06-27 09:53 | disposition home or self-care (01) | DRG 773 ==
LOC: YASAS 11:59 → Y6N 14:54
PROVIDERS: ADMIT Allergy & Immunology; ATTEND Allergy & Immunology
PROC: HZ2ZZZZ Detoxification Services for Substance Abuse Treatment (ICD-10-PCS; principal; 2024-06-22)
DX: F11.23 Opioid dependence with withdrawal (principal); F14.20 Cocaine dependence, uncomplicated; F17.210 Nicotine dependence, cigarettes, uncomplicated; F31.9 Bipolar disorder, unspecified; F19.282 Other psychoactive substance dependence with psychoactive substance-induced sleep disorder; F19.24 Other psychoactive substance dependence with psychoactive substance-induced mood disorder; Z21 Asymptomatic human immunodeficiency virus [HIV] infection status; E03.9 Hypothyroidism, unspecified; I10 Essential (primary) hypertension; J44.9 Chronic obstructive pulmonary disease, unspecified; K21.9 Gastro-esophageal reflux disease without esophagitis; M54.50 Low back pain, unspecified; G89.29 Other chronic pain; Z79.899 Other long term (current) drug therapy; Z86.19 Personal history of other infectious and parasitic diseases; Z88.1 Allergy status to other antibiotic agents
CPT/HCPCS: 36415; 71046-TC-FY; 80053; 80305; 80307; 84439; 84443; 85027; 86593; 86780; 86803; 93005; 93010; Q0162

== ENCOUNTER 2024-12-25 13:03 | Inpatient (IN) | payer OTHER ==
[2024-12-25] MEDS ORDERED: guaiFENesin 600 MG TABLET.ER (FP) PO PRN (14:36)
[2024-12-25] MEDS ORDERED: BENZOCAINE/MENTHOL (CHLORASEPTIC ) LOZENGE MM PRN (14:36)
[2024-12-25] MEDS ORDERED: IBUPROFEN 400 MG TABLET (FP) PO PRN (14:36)
[2024-12-25] MEDS ORDERED: LOPERAMIDE HCL 2 MG CAPSULE PO PRN (14:36)
[2024-12-25] MEDS ORDERED: NICOTINE POLACRILEX 2 MG GUM BUC PRN (14:36)
[2024-12-25] MEDS ORDERED: NICOTINE POLACRILEX 2 MG LOZENGE BC PRN (14:36)
[2024-12-25] MEDS ORDERED: BENZONATATE 200 MG CAPSULE PO PRN (14:36)
[2024-12-25] MEDS: FLUCONAZOLE 50 MG TABLET PO SCH (15:47)
[2024-12-25] MEDS: RILPIVIRINE HCL 25 MG TABLET PO ONE (15:48)
[2024-12-25] MEDS: EMTRICITABINE 200MG/TENOFOVIR 300MG PO ONE (15:49)
[2024-12-25] MEDS: METHOCARBAMOL 500 MG TABLET PO PRN (17:44)
[2024-12-25] MEDS: LURASIDONE HCL 40 MG TABLET PO SCH (19:55)
[2024-12-25] MEDS: hydrOXYzine PAMOATE 25 MG CAPSULE (FP) PO PRN (21:48)
[2024-12-25] MEDS: THIAMINE 100 MG TABLET PO SCH (21:48)
[2024-12-25] MEDS: GABAPENTIN 100 MG CAPSULE PO PRN (21:48)
[2024-12-25] MEDS: valACYclovir HCL 500 MG TABLET (FP) PO SCH (21:48)
[2024-12-25] MEDS: MELATONIN 5 MG TABLETS PO SCH (21:48)
[2024-12-25] MEDS: BUDESONIDE/FORMETEROL FUMARATE 160/4.5 mcg INHALER IH SCH (22:06)
[2024-12-26] MEDS: PRENATAL VITAMINS W/ FOLIC ACID TABLET (FP) PO SCH (05:36)
[2024-12-26] MEDS: EMTRICITABINE 200MG/TENOFOVIR 300MG PO SCH (07:33)
[2024-12-26] MEDS: RILPIVIRINE HCL 25 MG TABLET PO SCH (07:33)
[2024-12-26] MEDS ORDERED: RILPIVIRINE PO SCH (08:00)
[2024-12-26] MEDS ORDERED: TENOFOV PO SCH (08:00)
[2024-12-26] MEDS ORDERED: EMTRICITAB PO SCH (08:00)
[2024-12-26] MEDS: HYDROCHLOROTHIAZIDE 25 MG TABLET (FP) PO SCH (09:27)
[2024-12-26] MEDS: traZODone HCL 50 MG TABLET (FP) PO SCH (22:45)
[2024-12-29] MEDS: MAG HYDROX/AL HYDROX/SIMETH 30 ML UNIT-DOSE CUP PO PRN (15:40)
[2024-12-29] MEDS: MICONAZOLE NITRATE 2% VAGINAL CREAM 45 GM TUBE VG SCH (21:26)
[2024-12-31] MEDS: GABAPENTIN 100 MG CAPSULE PO SCH (14:43)
[2024-12-31] MEDS: LURASIDONE HCL 40 MG, LURASIDONE HCL 20 MG PO SCH (17:23)
[2024-12-31] MEDS ORDERED: LURASIDONE HCL 40 MG TABLET PO SCH (18:00)
[2025-01-01] MEDS: IBUPROFEN 600 MG TABLET (FP) PO PRN (03:39)
[2025-01-01] MEDS: LIDOCAINE 5% TOPICAL PATCH TP SCH (12:08)
[2025-01-01] MEDS: LIDOCAINE PATCH REMOVAL MC SCH (23:56)
[2025-01-03] MEDS: POLYETHYLENE GLYCOL (HEALTHYLAX) 3350 17 GM PACKET PO PRN (17:40)
[2025-01-04] MEDS: ALBUTEROL SO4 HFA INHALER IH SCH (09:49)
[2025-01-04 17:01] LABS: EPI CELLS 25 /uL (0-25.1); HYALINE CASTS 0 /uL (0-3.1); URINE APPEARANCE CLEAR; URINE BACTERIA 3204 /uL (0-1359); URINE BILIRUBIN NEGATIVE (NEGATIVE); URINE COLOR YELLOW; URINE GLUCOSE (UA) NEGATIVE (NEGATIVE); URINE KETONE NEGATIVE (NEGATIVE); URINE LEUK ESTERASE 3+ (NEGATIVE); URINE NITRITE NEGATIVE (NEGATIVE); URINE PROTEIN NEGATIVE (NEGATIVE); URINE RBC 22 /uL (0-23.9); URINE UROBILINOGEN 0.2 mg/dL (0.2-1.0); URINE WBC 86 /uL (0-25.8)
[2025-01-05] MEDS: MAGNESIUM HYDROX 2400MG/30ML ORAL SUSPENSION 30 ML CUP PO PRN (15:42)
[2025-01-06] MEDS: NITROFURANTOIN MONOHYD/M-CRYST 100 MG CAPSULE PO SCH (13:40)
[2025-01-06] MEDS: PHENAZOPYRIDINE HCL 100 MG TABLET (FP) PO SCH (13:41)
[2025-01-06] MEDS: ACETAMINOPHEN 325 MG TABLET (FP) PO PRN (17:51)
[2025-01-07] MEDS: MAGNESIUM HYDROX 2400MG/30ML ORAL SUSPENSION 30 ML CUP PO PRN (01:59)
[2025-01-07 07:19] VITALS: RESP 18; TEMP 96.9
[2025-01-07 11:25] VITALS: BP 126/77; PULSE 73
== END 2025-01-07 13:25 | disposition home or self-care (01) | DRG 772 ==
LOC: YASAS 13:03 → Y3NR 13:05 → Y5N 12-28 11:43
PROVIDERS: ADMIT Psychiatry & Neurology Pain Medicine; ATTEND Psychiatry & Neurology Pain Medicine
PROC: HZ42ZZZ Group Counseling for Substance Abuse Treatment, Cognitive-Behavioral (ICD-10-PCS; principal; 2024-12-25)
DX: F11.20 Opioid dependence, uncomplicated (principal); F14.20 Cocaine dependence, uncomplicated; F17.210 Nicotine dependence, cigarettes, uncomplicated; F19.282 Other psychoactive substance dependence with psychoactive substance-induced sleep disorder; F19.280 Other psychoactive substance dependence with psychoactive substance-induced anxiety disorder; F19.24 Other psychoactive substance dependence with psychoactive substance-induced mood disorder; F31.9 Bipolar disorder, unspecified; Z21 Asymptomatic human immunodeficiency virus [HIV] infection status; E05.90 Thyrotoxicosis, unspecified without thyrotoxic crisis or storm; I10 Essential (primary) hypertension; J44.9 Chronic obstructive pulmonary disease, unspecified; M54.50 Low back pain, unspecified; G89.29 Other chronic pain; N39.0 Urinary tract infection, site not specified; B96.20 Unspecified Escherichia coli [E. coli] as the cause of diseases classified elsewhere; Z86.19 Personal history of other infectious and parasitic diseases; Z88.0 Allergy status to penicillin; Z88.1 Allergy status to other antibiotic agents
CPT/HCPCS: 36415; 71046-TC-FY; 81003; 86803; 87086